=== PATIENT | male | born 1940 | race Caucasian/White ===

== ENCOUNTER 2021-04-05 16:44 | Inpatient (IN) | payer MEDICARE ==
[2021-04-05] MEDS ORDERED: NITROGLYCERIN OINT 1 INCH/GM PACKET TOPICAL STA (16:47)
[2021-04-05 17:09] LABS: Basophils % (A) 0 %; Eosinophils # (A) 0.1 k/uL (0-0.7); Eosinophils % (A) 2 %; Lymphocytes # (A) 0.9 k/uL (1.0-4.8); Lymphocytes % (A) 15 %; MCH 32.1 pg (25.0-35.0); MCHC 34.1 g/dL (31.0-37.0); Mean Platelet Volume 7.2; Monocytes # (A) 0.4 k/uL (0-1.0); Monocytes % (A) 7 %; Neutrophils # (A) 4.5 k/uL (1.3-7.7); Neutrophils % (A) 74 %; Platelet Count 133 k/uL (150-450); Poikilocytosis Slight; RBC 4.99 m/uL (4.30-5.90); RDW 14.5 % (11.5-15.5)
[2021-04-05 17:17] LABS: INR 1.1 (<1.2); Partial Thromboplastin Time 27.2 sec (22.0-30.0); Prothrombin Time 11.7 sec (9.0-12.0)
[2021-04-05 17:25] LABS: Albumin 3.5 g/dL (3.5-5.0); Calcium 9.5 mg/dL (8.4-10.2); Magnesium 2.2 mg/dL (1.6-2.3); Potassium 4.4 mmol/L (3.5-5.1); Total Bilirubin 1.3 mg/dL (0.2-1.3); Total Protein 6.5 g/dL (6.3-8.2)
--- NOTE | 2021-04-05 17:43 | XR ---
EXAMINATION TYPE: XR chest 2V DATE OF EXAM: 04/05/2021 COMPARISON: 03/11/2012 HISTORY: Bradycardia. Chest pain TECHNIQUE: FINDINGS: There is no heart failure nor confluent pneumonic infiltrate. There is left axillary pacema ker. Costophrenic angles are clear. Thoracic aorta is atheromatous. There are chest leads. There is o steopenia and some anterior wedging of several thoracic vertebra. IMPRESSION: No active cardiopulmonary disease. Inspiration is improved compared to old exam.
--- NOTE | 2021-04-05 18:01 | ED ---
General Adult HPI - General Chief complaint: Chest Pain Stated complaint: chest pain Time Seen by Provider: 04/05/21 16:45 Source: patient, EMS, RN notes reviewed, old records reviewed Mode of arrival: EMS Limitations: no limitations - History of Present Illness Initial comments: This is a 80-year-old male who presents emergency Department with a 20 minute episode of chest pain. Patient does not recall that episode however the nurse spoke with EMS that it lasted about 20 minutes he was gripping his chest at that time. According to EMS when they arrived the pain had already resolved and the patient denies ever having pain. Patient doesn't remember why he was coming to the emergency department so he is a poor historian at this time. EMS that he has been completely asymptomatic in route and no other indication of anything else is been going on recently. There is no family or friends with them so we do not have any of his past medical history at this time. - Related Data Allergies Allergy/AdvReac Type Severity Reaction Status Date / Time No Known Allergies Allergy Verified 04/05/21 16:48 Review of Systems ROS Statement: Those systems with pertinent positive or pertinent negative responses have been documented in the HPI. ROS Other: All systems not noted in ROS Statement are negative. Past Medical History Past Medical History: Atrial Fibrillation History of Any Multi-Drug Resistant Organisms: None Reported Past Surgical History: Unable to Obtain Past Psychological History: No Psychological Hx Reported Smoking Status: Never smoker Past Alcohol Use History: None Reported Past Drug Use History: None Reported General Exam - General Exam Comments Initial Comments: GENERAL: Patient is well-developed and well-nourished. Patient is nontoxic and well-hydrated and is in no acute distress. ENT: Neck is soft and supple. No significant lymphadenopathy is noted. Oropharynx is clear. Moist mucous membranes. Neck has full range of motion without eliciting any pain. EYES: The sclera were anicteric and conjunctiva were pink and moist. Extraocular movements were intact and pupils were equal round and reactive to light. Eyelids were unremarkable. PULMONARY: Unlabored respirations. Good breath sounds bilaterally. No audible rales rhonchi or wheezing was noted. CARDIOVASCULAR: There is a regular rate and rhythm without any murmurs gallops or rubs. ABDOMEN: Soft and nontender with normal bowel sounds. No palpable organomegaly was noted. There is no palpable pulsatile mass. SKIN: Skin is clear with no lesions or rashes and otherwise unremarkable. NEUROLOGIC: Patient is alert and oriented 2. Cranial nerves II through XII are grossly i ntact. Motor and sensory are also intact. Patient has slurred speech however according to EMS as is his baseline. Patient also takes time to respond and move slowly and EMS again states this is his baseline. Symmetrical smile.. MUSCULOSKELETAL: Normal extremities with adequate strength and full range of motion. No lower extremity swelling or edema. No calf tenderness. LYMPHATICS: No significant lymphadenopathy is noted PSYCHIATRIC: Unable to assess at this time secondary oriented 2 Limitations: no limitations Course Vital Signs 04/05/21 04/05/21 04/05/21 16:46 17:35 18:01 Temperature 97.9 F Pulse Rate 105 H 87 86 Respiratory 18 16 16 Rate Blood Pressure 141/112 108/78 94/59 O2 Sat by Pulse 98 98 98 Oximetry Medical Decision Making - Medical Decision Making EKG shows A. fib with occasional ventricular paced complex at 81 bpm QRS is 94 QT interval 380 QTC is 450. There are other pacer spikes that are not being captured. Chest x-ray shows no acute normalities. I spoke with Dr. Fermin Kennedy agreed to admit the patient admitted the patient wrote admitting orders. - Lab Data Result diagrams: 04/05/21 16:56 04/05/21 16:56 Lab Results 04/05/21 04/05/21 04/05/21 Range/Units 16:56 16:56 16:56 WBC 6.0 (3.8-10.6) k/uL RBC 4.99 (4.30-5.90) m/uL Hgb 16.0 (13.0-17.5) gm/dL Hct 47.0 (39.0-53.0) % MCV 94.0 (80.0-100.0) fL MCH 32.1 (25.0-35.0) pg MCHC 34.1 (31.0-37.0) g/dL RDW 14.5 (11.5-15.5) % Plt Count 133 L (150-450) k/uL MPV 7.2 Neutrophils % 74 % Lymphocytes % 15 % Monocytes % 7 % Eosinophils % 2 % Basophils % 0 % Neutrophils # 4.5 (1.3-7.7) k/uL Lymphocytes # 0.9 L (1.0-4.8) k/uL Monocytes # 0.4 (0-1.0) k/uL Eosinophils # 0.1 (0-0.7) k/uL Basophils # 0.0 (0-0.2) k/uL Poikilocytosis Slight PT 11.7 (9.0-12.0) sec INR 1.1 (<1.2) APTT 27.2 (22.0-30.0) sec Sodium 138 (137-145) mmol/L Potassium 4.4 (3.5-5.1) mmol/L Chloride 104 (98-107) mmol/L Carbon Dioxide 26 (22-30) mmol/L Anion Gap 8 mmol/L BUN 24 H (9-20) mg/dL Creatinine 1.00 (0.66-1.25) mg/dL Est GFR (CKD-EPI)AfAm 81 (>60 ml/min/1.73 sqM) Est GFR (CKD-EPI)NonAf 70 (>60 ml/min/1.73 sqM) Glucose 105 H (74-99) mg/dL Calcium 9.5 (8.4-10.2) mg/dL Magnesium 2.2 (1.6-2.3) mg/dL Total Bilirubin 1.3 (0.2-1.3) mg/dL AST 21 (17-59) U/L ALT 9 (4-49) U/L Alkaline Phosphatase 91 (38-126) U/L Troponin I (0.000-0.034) ng/mL Total Protein 6.5 (6.3-8.2) g/dL Albumin 3.5 (3.5-5.0) g/dL 04/05/21 Range/Units 16:56 WBC (3.8-10.6) k/uL RBC (4.30-5.90) m/uL Hgb (13.0-17.5) gm/dL Hct (39.0-53.0) % MCV (80.0-100.0) fL MCH (25.0-35.0) pg MCHC (31.0-37.0) g/dL RDW (11.5-15.5) % Plt Count (150-450) k/uL MPV Neutrophils % % Lymphocytes % % Monocytes % % Eosinophils % % Basophils % % Neutrophils # (1.3-7.7) k/uL Lymphocytes # (1.0-4.8) k/uL Monocytes # (0-1.0) k/uL Eosinophils # (0-0.7) k/uL Basophils # (0-0.2) k/uL Poikilocytosis PT (9.0-12.0) sec INR (<1.2) APTT (22.0-30.0) sec Sodium (137-145) mmol/L Potassium (3.5-5.1) mmol/L Chloride (98-107) mmol/L Carbon Dioxide (22-30) mmol/L Anion Gap mmol/L BUN (9-20) mg/dL Creatinine (0.66-1.25) mg/dL Est GFR (CKD-EPI)AfAm (>60 ml/min/1.73 sqM) Est GFR (CKD-EPI)NonAf (>60 ml/min/1.73 sqM) Glucose (74-99) mg/dL Calcium (8.4-10.2) mg/dL Magnesium (1.6-2.3) mg/dL Total Bilirubin (0.2-1.3) mg/dL AST (17-59) U/L ALT (4-49) U/L Alkaline Phosphatase (38-126) U/L Troponin I <0.012 (0.000-0.034) ng/mL Total Protein (6.3-8.2) g/dL Albumin (3.5-5.0) g/dL Disposition Clinical Impression: Chest pain Disposition: ADMITTED IP TO THIS [facility] Time of Disposition: 18:01
[2021-04-05] MEDS ORDERED: NITROGLYCERIN SL TABS 0.4 MG TAB SUBLINGUAL PRN (18:02)
[2021-04-05] MEDS ORDERED: ACETAMINOPHEN TAB 500 MG TAB PO PRN (18:33)
[2021-04-05] MEDS: SODIUM CHLORIDE 0.9% 1,000 ML IV SCH (19:00)
--- NOTE | 2021-04-05 19:11 | CT ---
EXAMINATION TYPE: CT brain wo con DATE OF EXAM: 04/05/2021 COMPARISON: None HISTORY: ams CT DLP: 1159.4 mGycm Automated exposure control for dose reduction was used. There is cerebral cortical atrophy. There is no mass effect nor midline shift. There is no sign of in tracranial hemorrhage. The calvarium is intact. There is patchy hypodensity in the periventricular wh ite matter. IMPRESSION: Cerebral atrophy. No acute intracranial abnormality. Chronic small vessel ischemia.
--- NOTE | 2021-04-05 20:30 | HP ---
HISTORY AND PHYSICAL DATE OF SERVICE: 04/05/2021 CHIEF COMPLAINT: Chest pain. HISTORY OF PRESENT ILLNESS: This 80-year-old gentleman with a past medical history of multiple medical problems was admitted with chest pain. The patient was referred from [facility]. The pain was felt in the anterior part of the chest. The patient is rather confused, unable to give a coherent history. Most of the history is taken from my discussion with staff and review of the chart at this time. The patient has a past medical history of atrial fibrillation. There is no history of any fever, rigor or chills at this time. PAST MEDICAL HISTORY: Atrial fibrillation. Otherwise, unable to obtain currently. MEDICATIONS: List is not available. ALLERGIES: NONE. Family history, social history, review of systems could not be taken because of the patient's confusion. PHYSICAL EXAMINATION: Patient is conscious, confused. Pulse is 86, blood pressure 94/60, respirations 16, temperature 97.9, pulse ox 98% on room air. HEENT: Conjunctivae normal. NECK: No jugular venous distention. CARDIOVASCULAR: S1, S2 muffled. RESPIRATION: Breath sounds diminished at the bases. A few scattered rhonchi and crackles. ABDOMEN: Soft, nontender. LEGS: No edema. No swelling. NERVOUS SYSTEM: Higher functions as mentioned earlier. Moves all 4 limbs. No focal motor or sensory deficit. LYMPHATICS: No lymph node palpable in neck, axillae or groin. SKIN: No ulcer, rash, bleeding. JOINTS: No active deforming arthropathy. LABS: Platelets are 133. Otherwise, sodium , potassium 4.4. Glucose 105. ASSESSMENT: 1. Chest pain for evaluation; possible unstable angina. Rule out coronary artery disease. 2. Atrial fibrillation. 3. Thrombocytopenia. 4. Change in mental status, metabolic encephalopathy. 5. Possible dementia. 6. Elevated random glucose. RECOMMENDATIONS AND DISCUSSION: I recommend to continue current medications, continue with symptomatic treatment. Otherwise, a portable chest x-ray showed no acute problems at this time. Will consult Cardiology. Set of troponins. We will also resume the home medications once the list is available. Prognosis is guarded. Further recommendations to follow. MMODL / IJN: [id number] / MTDD
[2021-04-05] MEDS: HEPARIN SODIUM,PORCINE/PF 5,000 UNIT/0.5 ML SYRINGE SQ SCH (22:08)
[2021-04-05] MEDS: NITROGLYCERIN OINT 1 INCH/GM PACKET TOPICAL SCH (23:11)
[2021-04-06] MEDS: NITROGLYCERIN OINT 1 INCH/GM PACKET TOPICAL SCH ×3 (06:06→17:20)
[2021-04-06] MEDS: PANTOPRAZOLE 40 MG TABLET PO SCH (08:20)
[2021-04-06] MEDS: HEPARIN SODIUM,PORCINE/PF 5,000 UNIT/0.5 ML SYRINGE SQ SCH ×2 (08:21→22:20)
[2021-04-06] MEDS: ASPIRIN 81 MG PO SCH (08:21)
[2021-04-06 08:59] LABS: Basophils # (A) 0.04 X 10*3/uL (0.00-0.10); Basophils % (A) 0.8 %; Eosinophils # (A) 0.14 X 10*3/uL (0.04-0.35); Eosinophils % (A) 2.7 %; HCT 42.9 % (39.6-50.0); HGB 14.5 g/dL (13.0-17.0); Lymphocytes # (A) 1.34 X 10*3/uL (0.90-5.00); Lymphocytes % (A) 25.5 %; MCH 31.6 pg (27.0-32.0); MCHC 33.8 g/dL (32.0-37.0); MCV 93.5 fL (80.0-97.0); Mean Platelet Volume 9.8 fL (9.5-12.2); Monocytes # (A) 0.42 X 10*3/uL (0.20-1.00); Neutrophils # (A) 3.29 X 10*3/uL (1.80-7.70); Neutrophils % (A) 62.4 %; Platelet Count 119 X 10*3/uL (140-440); RBC 4.59 X 10*6/uL (4.40-5.60); RDW 13.1 % (11.5-14.5); WBC 5.26 X 10*3/uL (4.50-10.00)
[2021-04-06] MEDS ORDERED: ASPIRIN 325 MG TAB PO SCH (09:00)
[2021-04-06 09:01] LABS: African American GFR (CKD) 92.5 (60.0-200.0); BUN/Creat Ratio 26.67 Ratio (12.00-20.00); Calcium 9.3 mg/dL (8.7-10.3); Chol/HDL Ratio 3.2; LDL Cholesterol,Calculated 51.2 mg/dL (0.0-131.0); Non-African American GFR(CKD) 79.8 (60.0-200.0); Potassium 3.9 mmol/L (3.5-5.5); VLDL Calculation 14.8 mg/dL (5.00-40.00)
--- NOTE | 2021-04-06 10:05 | P.CRDCN ---
History of Present Illness History of present illness: HISTORY OF PRESENTING ILLNESS This is a pleasant 80-year-old male past medical history significant for CVA, dementia, and pacemaker insertion (about 10 years ago per son). Per Son, the patient does not follow with a manager plan. We have been asked to see in consultation for chest pain. Patient is seen and examined at bedside. He is alert with verbal stimuli at time of exam. He is not oriented to person, place or time. He is confused. Unable to give a history or review of systems. History obtained from chart review and nursing. Spoke to patient's son who is the patient's POA. Patient currently lives with his son and has a home healthcare nurse. Home health care nurse evaluated the patient yesterday at home. She told the son that patient did have an irregular heart rhythm, his blood pressure was apparently low. He also complained of some chest pain. The home health care nurse recommended patient be taken to the emergency department. Patient son states that he also has been complaining of a cough and feeling congested. He usually has to have thick nurse in any liquids that he drinks, and they did recently run out of thickeners. Patient's son states his father did have a stroke years ago. He denies any known history of coronary artery disease, [place], diabetes, hypertension. Son states that his mental status usually comes and goes. He is normally able to walk to with a walker at home. He is forgetful, wakes up in the middle of night and will walk by himself. He has been complaining of not being able to see, son states the patient did get new glasses recently, but the patient continues to complain of decreased vision. Son also states patient has not had a bowel movement in about 1 week. His son is also looking into placement for his father. Current home medications include aspirin 81 mg daily, Sinemet, Lasix 20 mg daily, magnesium oxide 400 mg daily, potassium chloride 20meq daily, simvastatin. EKG reveals atrial fibrillation underlying HR 81 with A-V paced spikes, PVC present. CT brain- No acute intracranial abnormality. Cerebral atrophy. chronic small vessel ischemia Telemetry tracings indicate atrial fibrillation with controlled ventricular rates, paced spikes present, occasional PVCs. Chest xray- pacemaker present, thoracic aorta is atheromatous. No acute cardiopulmonary process. Laboratory reviewed, WBC 6, hemoglobin 16, platelets 133, sodium 138, potassium 4.4, BUN 24, serum creatinine 1, troponin negative 3, magnesium 2.2. REVIEW OF SYSTEMS At the time of my exam: Unable to give accurate review of systems at this time due to mental status PHYSICAL EXAMINATION Blood pressure 108/70 heart rate 75 afebrile and maintaining oxygen saturation on room air CONSTITUTIONAL: No apparent distress. HEENT: Head is normocephalic. Pupils are round, equal, sluggish. Sclerae anicteric. Mucous membranes of the mouth are dry. No JVD. CHEST EXAMINATION: Lungs are clear to auscultation. No chest wall tenderness is noted on palpation HEART EXAMINATION: Irregular rate and rhythm. S1, S2 heard. Systolic mumur noted ABDOMEN: Soft, nontender. Positive bowel sounds. :[place] with cloudy, yellow urine. EXTREMITIES: 2+ peripheral pulses, no lower extremity edema and no calf tenderness. SKIN: generalized ecchymosis NEUROLOGIC EXAMINATION: Patient is awake, alert and oriented x3. ASSESSMENT Chest pain, acute coronary syndrome has been ruled out Pacemaker insertion, unknown details, placed about 10 years ago per son Paroxysmal atrial fibrillation CHADS2-VASC score 4. History of CVA PLAN An acute coronary event has been ruled out with no EKG evidence of ischemia and negative cardiac enzymes. Interrogate patient's pacemaker Obtain 2D echocardiogram and doppler study to assess cardiac structure and function. Continue aspirin and statin Patient is currently rate controlled Anticoagulation- we will not start anticoagulation at this time due to frequent falls at home Nurse Practitioner note has been reviewed, I agree with a documented findings and plan of care. Patient was seen and examined. Past Medical History Past Medical History: Atrial Fibrillation History of Any Multi-Drug Resistant Organisms: None Reported Past Surgical History: Unable to Obtain Past Anesthesia/Blood Transfusion Reactions: No Reported Reaction Past Psychological History: No Psychological Hx Reported Smoking Status: Never smoker Past Alcohol Use History: None Reported Past Drug Use History: None Reported Medications and Allergies Home Medications Medication Instructions Recorded Confirmed Type Aspirin 81 mg PO DAILY 04/05/21 04/05/21 History Bethanechol Chloride 25 mg PO BID 04/05/21 04/05/21 History Carbidopa-Levodopa 25-100 mg 1 tab PO TID 04/05/21 04/05/21 History [Sinemet 25-100] Cholecalciferol [Vitamin D3 (25 50 mcg PO DAILY 04/05/21 04/05/21 History Mcg = 1000 Iu)] Furosemide [Lasix] 20 mg PO DAILY 04/05/21 04/05/21 History Magnesium Oxide [Magox 400] 400 mg PO DAILY 04/05/21 04/05/21 History Nystatin 100,000 Unit/gm Powd 1 applic TOPICAL BID 04/05/21 04/05/21 History [Mycostatin Powder] Potassium Chloride ER [K-Dur 10] 20 meq PO DAILY 04/05/21 04/05/21 History Sennosides [Senna] 8.6 mg PO DAILY 04/05/21 04/05/21 History Simvastatin [Zocor] 20 mg PO HS 04/05/21 04/05/21 History Tamsulosin HCl [Flomax] 0.4 mg PO DAILY 04/05/21 04/05/21 History Allergies Allergy/AdvReac Type Severity Reaction Status Date / Time No Known Allergies Allergy Verified 04/05/21 21:41 Physical Exam Vitals: Vital Signs Temp Pulse Pulse Resp BP BP Pulse Ox 04/06/21 02:00 97.2 F L 75 16 108/70 95 04/05/21 21:00 66 04/05/21 20:00 98.4 F 66 17 106/68 95 04/05/21 18:01 86 16 94/59 98 04/05/21 17:35 87 16 108/78 98 04/05/21 16:46 97.9 F 105 H 18 141/112 98 Intake and Output 04/05/21 04/06/21 04/06/21 22:59 06:59 14:59 Intake Total 0 Output Total 250 Balance -250 0 Intake: Oral 0 Output: Urine 250 Other: Voiding Method Indwelling Catheter Indwelling Catheter Weight 90.718 kg Results 04/06/21 05:12 04/06/21 05:12 Cardiac Enzymes 04/05/21 04/05/21 04/05/21 Range/Units 11:43 16:56 16:56 AST 21 (17-59) U/L Troponin I <0.012 <0.012 (0.000-0.034) ng/mL 04/05/21 Range/Units 23:14 AST (17-59) U/L Troponin I <0.012 (0.000-0.034) ng/mL Coagulation 04/05/21 Range/Units 16:56 PT 11.7 (9.0-12.0) sec APTT 27.2 (22.0-30.0) sec CBC 04/05/21 Range/Units 16:56 WBC 6.0 (3.8-10.6) k/uL RBC 4.99 (4.30-5.90) m/uL Hgb 16.0 (13.0-17.5) gm/dL Hct 47.0 (39.0-53.0) % Plt Count 133 L (150-450) k/uL Comprehensive Metabolic Panel 04/05/21 Range/Units 16:56 Sodium 138 (137-145) mmol/L Potassium 4.4 (3.5-5.1) mmol/L Chloride 104 (98-107) mmol/L Carbon Dioxide 26 (22-30) mmol/L BUN 24 H (9-20) mg/dL Creatinine 1.00 (0.66-1.25) mg/dL Glucose 105 H (74-99) mg/dL Calcium 9.5 (8.4-10.2) mg/dL AST 21 (17-59) U/L ALT 9 (4-49) U/L Alkaline Phosphatase 91 (38-126) U/L Total Protein 6.5 (6.3-8.2) g/dL Albumin 3.5 (3.5-5.0) g/dL Current Medications Generic Name Dose Route Start Last Admin Trade Name Freq PRN Reason Stop Dose Admin Acetaminophen 500 mg 04/05/21 18:33 Acetaminophen Tab 500 Mg Tab PO Q6HR PRN Fever and/ or Pain Aspirin 325 mg 04/06/21 09:00 Aspirin 325 Mg Tab PO DAILY TOVA Heparin Sodium (Porcine) 5,000 unit 04/05/21 21:00 04/05/21 22:08 Heparin Sodium,Porcine/Pf 5,000 Unit/0.5 Ml Syringe SQ 5,000 unit Q12HR TOVA Administration Sodium Chloride 1,000 mls @ 50 mls/hr 04/05/21 18:45 04/05/21 19:00 Saline 0.9% IV 50 mls/hr .Q20H TOVA Administration Nitroglycerin 0.4 mg 04/05/21 18:02 Nitroglycerin Sl Tabs 0.4 Mg Tab SUBLINGUAL Q5M PRN Chest Pain Nitroglycerin 1 inch 04/06/21 00:00 04/06/21 06:06 Nitroglycerin Oint 1 Inch/Gm Packet TOPICAL 1 inch Q6HR TOVA Administration Pantoprazole Sodium 40 mg 04/06/21 07:30 Pantoprazole 40 Mg Tablet PO AC-BRKFST [facility] Intake and Output 04/05/21 04/06/21 04/06/21 22:59 06:59 14:59 Intake Total 0 Output Total 250 Balance -250 0 Intake: Oral 0 Output: Urine 250 Other: Voiding Method Indwelling Catheter Indwelling Catheter Weight 90.718 kg 04/05/21 16:56 04/05/21 16:56
--- NOTE | 2021-04-06 12:33 | ECHOF ---
Referral Reason:LV function MEASUREMENTS -------- HEIGHT: 182.9 cm WEIGHT: 90.7 kg BP: 108/70 RVIDd: 3.1 cm (< 3.3) IVSd: 1.3 cm (0.6 - 1.1) LVIDd: 3.7 cm (3.9 - 5.3) LVPWd: 1.6 cm (0.6 - 1.1) IVSs: 1.7 cm LVIDs: 2.5 cm LVPWs: 1.6 cm LAESV Index (A-L): 30.73 ml/m Ao Diam: 3.5 cm (2.0 - 3.7) AV Cusp: 1.1 cm (1.5 - 2.6) LA Diam: 3.7 cm (2.7 - 3.8) AR PHT: 583 ms RAP: 5.00 mmHg RVSP: 12.72 mmHg FINDINGS -------- This was a technically adequate study. The left ventricular size is normal. There is mild concentric left ventricular hypertrophy. Overa ll left ventricular systolic function is mildly impaired with, an EF between 45 - 50 %. The right ventricle is normal in size. LA is midly dilated 29-33ml/m2. The right atrial size is normal. Interatrial and interventricular septum intact. There is moderate aortic valve sclerosis. There is mild aortic regurgitation. There is no evidenc e of aortic stenosis. Mild mitral regurgitation is present. Mild tricuspid regurgitation present. There is no evidence of pulmonary hypertension. The right v entricular systolic pressure, as measured by Doppler, is 12.72mmHg. The pulmonic valve was not well visualized. The aortic root size is normal. Normal inferior vena cava with normal inspiratory collapse consistent with estimated right atrial pre ssure of 5 mmHg. There is no pericardial effusion. CONCLUSIONS -------- 1. The left ventricular size is normal. 2. There is mild concentric left ventricular hypertrophy. 3. Overall left ventricular systolic function is mildly impaired with, an EF between 45 - 50 %. 4. LA is midly dilated 29-33ml/m2. 5. There is moderate aortic valve sclerosis. 6. There is mild aortic regurgitation. 7. Mild mitral regurgitation is present. 8. Mild tricuspid regurgitation present. CARDBOARD INSERTER: Mitzi Cam, [facility]
[2021-04-06] MEDS: SODIUM CHLORIDE 0.9% 1,000 ML IV SCH (14:22)
--- NOTE | 2021-04-06 19:35 | PN ---
PROGRESS NOTE DATE OF SERVICE: 04/06/2021 This 80-year-old gentleman who was admitted with chest pain is also mildly confused. Patient closely monitored at this time. Cardiology has seen the patient and recommended a 2D echo with Doppler and anticoagulation. No chest pain. No palpitations. No fever. PHYSICAL EXAMINATION: Alert and oriented x2. Pulse 60. Blood pressure 105/74, respiration 18, temperature 97.8, pulse ox 98 percent on room air. HEENT: Conjunctivae normal. Neck: No JVD. Cardiovascular: S1, S2 muffled. Respiratory: Breath sounds diminished in the bases. Scattered rhonchi and crackles. Abdomen: Soft. Nontender. Legs no edema. No swelling. Nervous system: No focal deficits. LABS: Platelets are 119. ASSESSMENT: 1. Chest pain possible unstable angina. Myocardial infarction ruled out. 2. Atrial fibrillation. 3. On anticoagulation. 4. Thrombocytopenia. 5. Change in mental status, acute metabolic encephalopathy multifactorial. 6. Possible dehydration, possible dementia. 7. Elevated random glucose. RECOMMENDATIONS AND DISCUSSION: Recommend to continue current medications, symptomatic treatment. Otherwise closely with Cardiology. CT scan of the brain was reviewed. Shows significant dementia. Guarded prognosis. Repeat labs. Guarded prognosis. Further recommendations to follow. MMODL / IJN: [id number] /
[2021-04-06] MEDS: ATORVASTATIN 10 MG TAB PO SCH (21:14)
[2021-04-07] MEDS: NITROGLYCERIN OINT 1 INCH/GM PACKET TOPICAL SCH ×4 (00:20→17:47)
[2021-04-07] MEDS: HEPARIN SODIUM,PORCINE/PF 5,000 UNIT/0.5 ML SYRINGE SQ SCH ×2 (08:55→20:12)
[2021-04-07] MEDS: ASPIRIN 81 MG PO SCH (08:56)
[2021-04-07] MEDS: PANTOPRAZOLE 40 MG TABLET PO SCH (08:56)
[2021-04-07] MEDS: SODIUM CHLORIDE 0.9% 1,000 ML IV SCH (12:15)
--- NOTE | 2021-04-07 13:45 | P.PN ---
Subjective This is a pleasant 80-year-old male past medical history significant for CVA, dementia, and pacemaker insertion (about 10 years ago per son). 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 We have been asked to see in consultation for chest pain. Patient is seen and examined at bedside. He is alert with verbal stimuli at time of exam. He is not oriented to person, place or time. He is confused. Unable to give a history or review of systems. History obtained from chart review and nursing. Spoke to patient's son who is the patient's POA. Patient currently lives with his son and has a home healthcare nurse. Home health care nurse evaluated the patient yesterday at home. She told the son that patient did have an irregular heart rhythm, his blood pressure was apparently low. He also complained of some chest pain. The home health care nurse recommended patient be taken to the emergency department. Patient son states that he also has been complaining of a cough and feeling congested. He usually has to have thick nurse in any liquids that he drinks, and they did recently run out of thickeners. Patient's son states his father did have a stroke years ago. He denies any known history of coronary artery disease, AL, diabetes, hypertension. Son states that his mental status usually comes and goes. He is normally able to walk to with a walker at home. He is forgetful, wakes up in the middle of night and will walk by himself. He has been complaining of not being able to see, son states the patient did get new glasses recently, but the patient continues to complain of decreased vision. Son also states patient has not had a bowel movement in about 1 week. His son is also looking into placement for his father. Current home medications include aspirin 81 mg daily, Sinemet, Lasix 20 mg daily, magnesium oxide 400 mg daily, potassium chloride 20meq daily, simvastatin. EKG reveals atrial fibrillation underlying HR 81 with A-V paced spikes, PVC present. CT brain- No acute intracranial abnormality. Cerebral atrophy. chronic small vessel ischemia Telemetry tracings indicate atrial fibrillation with controlled ventricular rates, paced spikes present, occasional PVCs. Chest xray- pacemaker present, thoracic aorta is atheromatous. No acute cardiopulmonary process. 04/07/21: Patient seen and examined at bedside, appears more alert. Continues to be confused. Echocardiogram revealed left ventricular systolic function is mildly impaired with an EF between 45-50%, LA is mildly dilated, moderate aortic valve sclerosis, mild aortic regurgitation, mild mitral regurgitation, mild tricuspid regurgitation. Interrogation of patient's pacemaker performed which reveals he has an A fib burden of 44%, no acute findings on interrogation. Telemetry reviewed, patient continues to be in atrial fibrillation. He's currently m aintained on aspirin 81 mg daily, atorvastatin 10 mg nightly, subcu heparin, Protonix 40 mg daily. PHYSICAL EXAMINATION Blood pressure 108/70 heart rate 75 afebrile and maintaining oxygen saturation on room air CONSTITUTIONAL: No apparent distress. HEENT: Head is normocephalic. Pupils are round, equal, sluggish. Sclerae anicteric. Mucous membranes of the mouth are dry. No JVD. CHEST EXAMINATION: Lungs are clear to auscultation. No chest wall tenderness is noted on palpation HEART EXAMINATION: Irregular rate and rhythm. S1, S2 heard. Systolic mumur noted ABDOMEN: Soft, nontender. Positive bowel sounds. :[place] with cloudy, yellow urine. EXTREMITIES: 2+ peripheral pulses, no lower extremity edema and no calf tenderness. SKIN: generalized ecchymosis NEUROLOGIC EXAMINATION: Patient is awake, alert and oriented x3. ASSESSMENT Chest pain, acute coronary syndrome has been ruled out Pacemaker insertion, unknown details, placed about 10 years ago per son Paroxysmal atrial fibrillation CHADS2-VASC score 4. Cardiomyopathy, LV systolic function mildly impaired, EF 45-50%, most likely non-ischemic History of CVA PLAN An acute coronary event has been ruled out with no EKG evidence of ischemia and negative cardiac enzymes. Echocardiogram obtained and reviewed We will start carvedilol 3.125mg BID Continue aspirin and statin Patient is currently rate controlled Anticoagulation- we will not start anticoagulation at this time due to frequent falls at home and risk of bleeding. Patient can follow up outpatient with Dr. Mitchell From a cardiology perspective, no further testing at this time. We will follow the patient as needed. Please reconsult if questions or concerns. Nurse Practitioner note has been reviewed, I agree with a documented findings and plan of care. Patient was seen and examined. Objective - Vital Signs Vital signs: Vital Signs Temp 97.8 F 04/07/21 07:00 Pulse 74 04/07/21 07:00 Resp 18 04/07/21 07:00 BP 113/77 04/07/21 07:00 Pulse Ox 95 04/07/21 07:00 Intake & Output 04/06/21 04/07/21 04/07/21 18:59 06:59 18:59 Output Total 850 350 200 Balance -850 -350 -200 Output: Urine 850 350 200 Other: Voiding Method Indwelling Catheter Indwelling Catheter Indwelling Catheter - Labs CBC & Chem 7: 04/06/21 05:12 04/06/21 05:12
[2021-04-07] MEDS: carvediloL 3.125 MG TAB PO SCH (17:47)
--- NOTE | 2021-04-07 18:30 | PN ---
PROGRESS NOTE DATE OF SERVICE: 04/07/2021 This 80-year-old gentleman admitted with chest pain also was continued on some change in mental status also. A 2D echo with Doppler was done, showed ejection fraction about 45-50 percent and some multiple minimal valve abnormalities also. The patient also had a CT of the brain which showed cerebral atrophy and no acute abnormalities noted. Chronic small-vessel ischemia is noted. PAST MEDICAL HISTORY: Reviewed. REVIEW OF SYMPTOMS: Could not be obtained. CURRENT MEDICATIONS: Reviewed and include: Tylenol, aspirin, Lipitor, Coreg, heparin, Nitrostat, Nitro-Bid, Protonix. PHYSICAL EXAMINATION: Patient is alert and oriented. The patient is conscious, confused. Pulse 77, blood pressure 100/60, respiration 14, temperature 97.8, pulse ox 98 percent on room air. HEENT: Conjunctivae normal. NECK: No JVD. CARDIOVASCULAR: S1, S2 muffled. RESPIRATORY: Breath sounds diminished in the bases. A few scattered rhonchi and crackles. ABDOMEN: Soft, nontender. NERVOUS SYSTEM: Diffusely weak. LABS: CBC, platelets are 119. UA not available. ASSESSMENT: 1. Chest pain, possible unstable angina. Myocardial infarction ruled out. 2. Change in mental status, acute on chronic metabolic encephalopathy. 3. Rule out urinary tract infection. 4. Atrial fibrillation. 5. Possible underlying dementia. 6. On anticoagulation. 7. Thrombocytopenia. 8. Possible dehydration, present on admission. 9. Elevated random glucose. RECOMMENDATIONS AND DISCUSSION: This 80-year-old gentleman who presented with multiple complex medical issues, we will monitor the patient closely, continue the current medications, management and symptomatic treatment. Repeat labs. I would recommend UA with micro. Closely monitor. CT scan of the brain was noted. Follow up with Cardiology. Prognosis guarded. PT/OT evaluation. Consider possible rehab. Guarded prognosis. Further recommendations to follow. MMODL / IJN: [id number] /
[2021-04-07 18:45] LABS: Appearance,Urine Turbid (Clear); Bacteria,Urine Many /hpf; Bilirubin,Urine Negative (Negative); Blood,Urine Small (Negative); Budding Yeast,Urine Moderate /hpf; Color,Urine Dark Yellow; Glucose,Urine (UA) Negative (Negative); Hyaline Casts,Urine 20 /lpf (0-2); Ketones,Urine 1+ (Negative); Leukocyte Esterase,Urine Large (Negative); Mucus,Urine Many /hpf; Nitrite,Urine Positive (Negative); Protein,Urine 1+ (Negative); RBC,Urine 23 /hpf (0-5); Specific Gravity,Urine 1.021 (1.001-1.035); WBC,Urine >182 /hpf (0-5)
[2021-04-07] MEDS: ATORVASTATIN 10 MG TAB PO SCH (20:12)
[2021-04-08] MEDS: NITROGLYCERIN OINT 1 INCH/GM PACKET TOPICAL SCH ×5 (01:16→23:45)
[2021-04-08] MEDS: SODIUM CHLORIDE 0.9% 1,000 ML IV SCH (07:46)
[2021-04-08] MEDS: ASPIRIN 81 MG PO SCH (07:47)
[2021-04-08] MEDS: PANTOPRAZOLE 40 MG TABLET PO SCH (07:47)
[2021-04-08] MEDS: HEPARIN SODIUM,PORCINE/PF 5,000 UNIT/0.5 ML SYRINGE SQ SCH ×2 (07:47→20:23)
[2021-04-08] MEDS: carvediloL 3.125 MG TAB PO SCH ×2 (07:47→17:23)
[2021-04-08 12:00] LABS: Basophils # (A) 0.03 X 10*3/uL (0.00-0.10); Basophils % (A) 0.6 %; Eosinophils # (A) 0.15 X 10*3/uL (0.04-0.35); Eosinophils % (A) 2.8 %; HCT 43.8 % (39.6-50.0); HGB 14.4 g/dL (13.0-17.0); Lymphocytes # (A) 1.12 X 10*3/uL (0.90-5.00); Lymphocytes % (A) 20.6 %; MCH 30.6 pg (27.0-32.0); MCHC 32.9 g/dL (32.0-37.0); Mean Platelet Volume 9.4 fL (9.5-12.2); Monocytes # (A) 0.42 X 10*3/uL (0.20-1.00); Monocytes % (A) 7.7 %; Neutrophils % (A) 67.9 %; Platelet Count 136 X 10*3/uL (140-440); RBC 4.71 X 10*6/uL (4.40-5.60); RDW 13.2 % (11.5-14.5); WBC 5.44 X 10*3/uL (4.50-10.00)
[2021-04-08] MEDS: MULTIVITAMINS, THERA 1 EACH TAB PO SCH (12:22)
[2021-04-08] MEDS: THIAMINE 100 MG TAB PO SCH (12:22)
[2021-04-08] MEDS: FOLIC ACID 1 MG TAB PO SCH (12:22)
--- NOTE | 2021-04-08 12:33 | XR ---
EXAMINATION TYPE: XR chest 1V portable DATE OF EXAM: 04/08/2021 COMPARISON: Radiograph chest 04/05/2021 HISTORY: Rule out pneumonia TECHNIQUE: Single frontal view of the chest is obtained. FINDINGS: Left chest wall cardiac device with the lead tips over the right atrium and right ventricl e. There is no focal air space opacity, pleural effusion, or pneumothorax seen. Strandy scarring/atelect asis over the left lateral lung. The cardiac silhouette size is within normal limits. The osseous s tructures are intact. Punctate radiodensities over the right upper quadrant. IMPRESSION: No acute process.
--- NOTE | 2021-04-08 12:46 | PN ---
PROGRESS NOTE DATE OF SERVICE: 04/08/2021 This 80-year-old gentleman admitted with chest pain also had change in mental status. The patient has possible acute UTI. The patient was started on broad-spectrum IV antibiotics. Patient continues to be minimally responsive at this time. The patient has significant dementia with significant atrophy which is observed on the CT scan. Past medical history reviewed. Review of systems could not be taken. CURRENT MEDICATIONS: Current medications are Tylenol, aspirin, Lipitor, Coreg, Rocephin, folic acid, multivitamins, nitro. Doses are reviewed. PHYSICAL EXAMINATION: Patient is stuporous. Pulse 64, blood pressure 126/86, respirations 16, temperature 97.3, pulse ox 94% on room air. HEENT: Conjunctivae normal. NECK: No jugular venous distention. CARDIOVASCULAR: S1, S2 muffled. RESPIRATION: Breath sounds diminished at the bases. A few scattered rhonchi. ABDOMEN: Soft. NERVOUS SYSTEM: No focal deficit. LABS: CBC noted. UA noted. ASSESSMENT: 1. Change in mental status, acute on chronic metabolic encephalopathy, with possible acute urinary tract infection with sepsis, present on admission. 2. Chest pain; possible unstable angina. Myocardial infarction ruled out. 3. Atrial fibrillation. 4. Underlying severe dementia. 5. On anticoagulation. 6. Thrombocytopenia. 7. Dehydration, present on admission. 8. Elevated random glucose. RECOMMENDATIONS AND DISCUSSION: I recommend to continue current medications, continue with symptomatic treatment. Otherwise at this time continue the antibiotics. Also recommend repeat blood cultures and a portable chest x-ray. Prognosis guarded. Further recommendations to follow. MMODL / IJN: [id number] /
[2021-04-08] MEDS: ATORVASTATIN 10 MG TAB PO SCH (20:23)
[2021-04-08 22:50] LABS: African American GFR (CKD) 102.6 (60.0-200.0); Anion Gap 9.1 mmol/L (4.00-12.00); BUN/Creat Ratio 28.57 Ratio (12.00-20.00); Carbon Dioxide 23.9 mmol/L (21.6-31.8); Non-African American GFR(CKD) 88.5 (60.0-200.0); Potassium 3.9 mmol/L (3.5-5.5)
[2021-04-09] MEDS: SODIUM CHLORIDE 0.9% 1,000 ML IV SCH ×2 (04:43→23:31)
[2021-04-09] MEDS: NITROGLYCERIN OINT 1 INCH/GM PACKET TOPICAL SCH ×3 (05:03→17:50)
[2021-04-09] MEDS: ASPIRIN 81 MG PO SCH (07:57)
[2021-04-09] MEDS: carvediloL 3.125 MG TAB PO SCH ×2 (07:57→16:30)
[2021-04-09] MEDS: PANTOPRAZOLE 40 MG TABLET PO SCH (07:57)
[2021-04-09] MEDS: HEPARIN SODIUM,PORCINE/PF 5,000 UNIT/0.5 ML SYRINGE SQ SCH ×2 (07:57→23:30)
[2021-04-09] MEDS: MULTIVITAMINS, THERA 1 EACH TAB PO SCH (12:17)
[2021-04-09] MEDS: FOLIC ACID 1 MG TAB PO SCH (12:17)
[2021-04-09] MEDS: THIAMINE 100 MG TAB PO SCH (12:18)
--- NOTE | 2021-04-09 13:24 | PN ---
PROGRESS NOTE DATE OF SERVICE: 04/09/2012 This 80-year-old gentleman who was admitted with chest pain also had change in mental status. Patient also has a history of Parkinson's. The patient also had acute UTI. Patient was started on broad-spectrum IV antibiotics. Speech pathology evaluation has been also sought. Patient continues to be barely responsive at this time. Chest x-ray which is done and reviewed personally by me showed no acute abnormality. Past medical history reviewed. Review of systems could not be taken. CURRENT MEDICATIONS: Current medications are reviewed and include Tylenol, aspirin, Lipitor, Sinemet, Coreg, Rocephin, folic acid, Lasix, heparin, magnesium oxide, multivitamins, Nitrostat. Doses are reviewed. PHYSICAL EXAMINATION: Patient . Pulse 71, blood pressure 114/76, respirations 16, temperature 97.8, pulse ox 94% on room air. HEENT: Conjunctivae normal. NECK: No jugular venous distention. CARDIOVASCULAR: S1, S2 muffled. RESPIRATION: Breath sounds diminished at the bases. A few scattered rhonchi. ABDOMEN: Soft. NERVOUS SYSTEM: No focal deficit. LABS: WBC .4, hemoglobin 15.4. UA noted. Urine culture is pending. ASSESSMENT: 1. Change in mental status, possibly acute on chronic metabolic encephalopathy with possible acute urinary tract infection with sepsis, present on admission. 2. Chest pain, possible unstable angina. Myocardial infarction ruled out. 3. Atrial fibrillation. 4. Parkinson's. 5. Gait dysfunction. 6. Underlying severe dementia. 7. On anticoagulation. 8. Thrombocytopenia. 9. Dehydration, present on admission. 10.Elevated random glucose. RECOMMENDATIONS AND DISCUSSION: I recommend to continue current medications, continue with symptomatic treatment. Otherwise, continue with the home medications. Home medications are reconciled. Continue with antibiotics. PT/OT evaluation. Further recommendations to follow. MMODL / IJN: [id number] /
[2021-04-09] MEDS: CARBIDOPA-LEVODOPA 25-100 MG 1 EACH TAB PO SCH ×2 (16:25→23:31)
[2021-04-09] MEDS: NYSTATIN 100,000 UNIT/GM POWD 15 GM TOPICAL SCH (23:30)
[2021-04-09] MEDS: ATORVASTATIN 10 MG TAB PO SCH (23:31)
[2021-04-09] MEDS: BETHANECHOL 25 MG TAB PO SCH (23:31)
[2021-04-10] MEDS: NITROGLYCERIN OINT 1 INCH/GM PACKET TOPICAL SCH ×3 (00:28→14:07)
[2021-04-10 08:26] VITALS: BP 109/71; PULSE 77; RESP 16; TEMP 97.4
[2021-04-10] MEDS ORDERED: MAGNESIUM OXIDE 400 MG TAB PO SCH (09:00)
[2021-04-10] MEDS ORDERED: TAMSULOSIN 0.4 MG CAP.ER.24H PO SCH (09:00)
[2021-04-10] MEDS ORDERED: SENNOSIDES 8.6 MG TAB PO SCH (09:00)
[2021-04-10] MEDS ORDERED: FUROSEMIDE 20 MG TAB PO SCH (09:00)
[2021-04-10] MEDS ORDERED: CHOLECALCIFEROL 25 MCG (1000 IU) TABLET PO SCH (09:00)
[2021-04-10] MEDS ORDERED: POTASSIUM CHLORIDE ER 20 MEQ TAB.ER PO SCH (09:00)
[2021-04-10] MEDS: HEPARIN SODIUM,PORCINE/PF 5,000 UNIT/0.5 ML SYRINGE SQ SCH (09:13)
[2021-04-10] MEDS: PANTOPRAZOLE 40 MG TABLET PO SCH (14:06)
[2021-04-10] MEDS: THIAMINE 100 MG TAB PO SCH (14:06)
[2021-04-10] MEDS: ASPIRIN 81 MG PO SCH (14:06)
[2021-04-10] MEDS: MULTIVITAMINS, THERA 1 EACH TAB PO SCH (14:07)
[2021-04-10] MEDS: FOLIC ACID 1 MG TAB PO SCH (14:07)
[2021-04-10] MEDS: carvediloL 3.125 MG TAB PO SCH (14:10)
[2021-04-10] MEDS: CARBIDOPA-LEVODOPA 25-100 MG 1 EACH TAB PO SCH (14:10)
[2021-04-10] MEDS: BETHANECHOL 25 MG TAB PO SCH (14:10)
[2021-04-10] MEDS: NYSTATIN 100,000 UNIT/GM POWD 15 GM TOPICAL SCH (14:21)
--- NOTE | 2021-04-10 15:00 | P.DS ---
Providers Date of admission: 04/10/21 11:00 Expected date of discharge: 04/10/21 Attending physician: Mary Vanessa Consults: 04/05/21 18:02 Consult Physician Urgent Consulting Provider: [facility] Consult Reason/Comments: Chest pain Do you want consulting provider notified?: Yes Primary care physician: Merrill Chavez Hospital Course: Final diagnosis Change in mental status, possibly acute on chronic metabolic encephalopathy with possible acute urinary tract infection with sepsis, present on admission Chest pain, possible unstable angina, myocardial infarction ruled out Atrial fibrillation Parkinson's Gait dysfunction Underlying severe dementia Thrombocytopenia Dehydration, present on admission Elevated random glucose Discharge disposition Patient is being discharged in a stable condition with guarded prognosis to [facility] for continued PT/OT therapy. Patient will follow-up with Dr. Chavez in the outpatient setting upon discharge. Patient is to also follow-up with Dr. Mitchell cardiology in 2 weeks. Total time taken is greater than 35 minutes. Hospital course This is an 80-year-old male who was recently admitted with chest pain and also c hanges in mental status and being closely monitored. Patient does have a history of Parkinson's and was also found to have an acute urinary tract infection. Patient was started on antibiotics and will continue on oral Ceftin 500 mg twice daily for the next 5 days and then may discontinue. Patient was seen and evaluated by cardiology recommending outpatient follow-up with Dr. Mitchell in 1-2 weeks. Patient was also seen and evaluated by speech as he was having continued confusion and difficulty in swallowing and patient will continue with dysphasia 2 ground diet with nectar thickened liquids and strict aspiration precautions of head of the bed elevated 30-45 at all time along with supervision with meals and patient is able to take medications whole in applesauce. Currently no reports of chest pain, shortness of breath, or palpitations. Patient is afebrile. No reports of nausea or vomiting and patient is tolerating diet. Patient will be going to [facility] today. On exam vital signs are stable. Temp is 97.4F, pulse is 77 respirations are 16, blood pressure is 109/71, oxygen saturation is 95% on room air. Cardio S1, S2 are muffled. Respiratory system shows diminished breath sounds at the bases with no wheezing or rhonchi noted. Abdomen is soft and obese, and nontender. Nervous system shows diffuse weakness. Please refer to medication reconciliation sheet for a list of medications. Patient Condition at Discharge: Fair Plan - Discharge Summary Discharge Rx Participant: No New Discharge Prescriptions: New carvediloL [Coreg] 3.125 mg PO BID-W/MEALS tab Pantoprazole [Protonix] 40 mg PO AC-BRKFST tablet. Cefuroxime Axetil [Ceftin] 500 mg PO BID 5 Days #10 tab Folic Acid 1 mg PO DAILY@1200 tab Multivitamins, Thera [Multivitamin (formulary)] 1 each PO DAILY@1200 tab Nitroglycerin Sl Tabs [Nitrostat] 0.4 mg SUBLINGUAL Q5M PRN tab PRN Reason: Chest Pain Acetaminophen Tab [Tylenol] 500 mg PO Q6HR PRN tab PRN Reason: Fever And/ Or Pain Thiamine [Vitamin B-1] 100 mg PO DAILY@1200 tab Continue Sennosides [Senna] 8.6 mg PO DAILY Cholecalciferol [Vitamin D3 (25 Mcg = 1000 Iu)] 50 mcg PO DAILY Furosemide [Lasix] 20 mg PO DAILY Carbidopa-Levodopa 25-100 mg [Sinemet 25-100 mg] 1 tab PO TID Bethanechol Chloride 25 mg PO BID Tamsulosin HCl [Flomax] 0.4 mg PO DAILY Simvastatin [Zocor] 20 mg PO HS Potassium Chloride ER [K-Dur 10] 20 meq PO DAILY Nystatin 100,000 Unit/gm Powd [Mycostatin Powder] 1 applic TOPICAL BID Magnesium Oxide [Magox 400] 400 mg PO DAILY Aspirin 81 mg PO DAILY Discharge Medication List Aspirin 81 mg PO DAILY 04/05/21 [History] Bethanechol Chloride 25 mg PO BID 04/05/21 [History] Carbidopa-Levodopa 25-100 mg [Sinemet 25-100 mg] 1 tab PO TID 04/05/21 [History] Cholecalciferol [Vitamin D3 (25 Mcg = 1000 Iu)] 50 mcg PO DAILY 04/05/21 [History] Furosemide [Lasix] 20 mg PO DAILY 04/05/21 [History] Magnesium Oxide [Magox 400] 400 mg PO DAILY 04/05/21 [History] Nystatin 100,000 Unit/gm Powd [Mycostatin Powder] 1 applic TOPICAL BID 04/05/21 [History] Potassium Chloride ER [K-Dur 10] 20 meq PO DAILY 04/05/21 [History] Sennosides [Senna] 8.6 mg PO DAILY 04/05/21 [History] Simvastatin [Zocor] 20 mg PO HS 04/05/21 [History] Tamsulosin HCl [Flomax] 0.4 mg PO DAILY 04/05/21 [History] Acetaminophen Tab [Tylenol] 500 mg PO Q6HR PRN tab 04/10/21 [Rx] Cefuroxime Axetil [Ceftin] 500 mg PO BID 5 Days #10 tab 04/10/21 [Rx] Folic Acid 1 mg PO DAILY@1200 tab 04/10/21 [Rx] Multivitamins, Thera [Multivitamin (formulary)] 1 each PO DAILY@1200 tab 04/10/21 [Rx] Nitroglycerin Sl Tabs [Nitrostat] 0.4 mg SUBLINGUAL Q5M PRN tab 04/10/21 [Rx] Pantoprazole [Protonix] 40 mg PO AC-BRKFST tablet. 04/10/21 [Rx] Thiamine [Vitamin B-1] 100 mg PO DAILY@1200 tab 04/10/21 [Rx] carvediloL [Coreg] 3.125 mg PO BID-W/MEALS tab 04/10/21 [Rx] Follow up Appointment(s)/Referral(s): Merrill Chavez MD [Primary Care Provider] - 1-2 days Misha Mitchell MD [STAFF PHYSICIAN] - 2 Weeks Patient Instructions/Handouts: A-fib (Atrial Fibrillation) (DC) Activity/Diet/Wound Care/Special Instructions: Patient is going to [facility] Activity as tolerated Continue with antibiotics for 5 days and then may discontinue Patient is to continue with dysphasia to ground diet with nectar thickened liquids and may take medications whole in applesauce Continue with strict aspiration precautions of head of the bed elevated 30-45 at all time and supervision with meals Follow-up with cardiology outpatient in 2 weeks Discharge Disposition: TRANSFER TO SNF/ECF
== END 2021-04-10 17:25 | DRG 871 ==
LOC: EC 16:44 → 6NMEDSUR 18:02 → OBSVTOIN 04-10 11:00
PROVIDERS: ADMIT Hospitalist; ATTEND Hospitalist
DX: A41.9 Sepsis, unspecified organism (principal); G93.41 Metabolic encephalopathy; N39.0 Urinary tract infection, site not specified; I42.8 Other cardiomyopathies; I20.0 Unstable angina; I48.91 Unspecified atrial fibrillation; D69.6 Thrombocytopenia, unspecified; F02.80 Dementia in other diseases classified elsewhere, unspecified severity, without behavioral disturbance, psychotic disturbance, mood disturbance, and anxiety; E86.0 Dehydration; Z86.73 Personal history of transient ischemic attack (TIA), and cerebral infarction without residual deficits; G20 Parkinson's disease; R26.9 Unspecified abnormalities of gait and mobility; I70.0 Atherosclerosis of aorta; H54.7 Unspecified visual loss; Z95.0 Presence of cardiac pacemaker; Z79.899 Other long term (current) drug therapy; Z79.82 Long term (current) use of aspirin; I49.3 Ventricular premature depolarization
CPT/HCPCS: 36415; 70450; 71045; 71046; 80048; 80053; 80061; 81001; 83735; 84484; 85025; 85610; 85730; 87040; 93005; 93306; 99285

== ENCOUNTER 2021-05-06 22:06 | Inpatient (IN) | payer MEDICARE ==
--- NOTE | 2021-05-06 22:56 | ED ---
Fall HPI - General Chief Complaint: Fall Stated Complaint: Fall Time Seen by Provider: 05/06/21 22:11 Source: EMS Mode of arrival: EMS Limitations: altered mental status - History of Present Illness Initial Comments: This patient is an 81-year-old man who was transferred here from [facility] where he had gone to be evaluated after a fall. When I interview the patient, he does appear to have probably some underlying dementia or there may be some additional delirium. The patient is not able to clearly describe the fall. He does acknowledge back pain. He denies other pain. He denies dyspnea. Per the EMS crew describing to the [place] personnel, the patient had fallen at home, between 5 and 6 PM. He was reportedly attempting to get out of bed fell backwards striking his head and lower back and breaking part of the head board of the bed. He complained of upper back pain at the time. On arrival at the other facility, the patient did not have other complaints than that. He had workup there which included labs, which for the most part were normal though there was leukocytosis at 11.1 thousand with 88% neutrophils. Urinalysis showed 50-100 red cells and white cells. The patient does have reportedly indwelling Linares catheter however. The patient had CT of the brain and C-spine which were read as negative for acute pathology. There was a computed tomography scan of the thoracic spine showing was reported as a severe acute compression fracture of the T5 vertebral body. There was also right 6 and seventh rib fracture noted. Computed tomography scan of the L-spine was negative. Computed tomography scan of the pelvis was read as negative. The patient was given 1 g of Rocephin for the Linares catheter which was also changed at the facility or to transfer here. Complaint: fall -: hour(s) Fall From: standing When Fall Occurred: just prior to arrival Fall Witnessed: yes, by family Place Fall Occurred: home Loss of Consciousness: none Prolonged Down Time?: no Symptoms Prior to Fall: none Location: back - Related Data Home Medications Medication Instructions Recorded Confirmed Bethanechol Chloride 25 mg PO BID 04/05/21 05/06/21 Carbidopa-Levodopa 25-100 mg 1 tab PO TID 04/05/21 05/06/21 [Sinemet 25-100 mg] Cholecalciferol [Vitamin D3 (25 50 mcg PO DAILY 04/05/21 05/06/21 Mcg = 1000 Iu)] Magnesium Oxide [Magox 400] 400 mg PO DAILY 04/05/21 05/06/21 Sennosides [Senna] 8.6 mg PO DAILY 04/05/21 05/06/21 Tamsulosin HCl [Flomax] 0.4 mg PO DAILY 04/05/21 05/06/21 Multivitamins, Thera [Multivitamin 1 tab PO DAILY@1200 05/06/21 05/06/21 (formulary)] Omeprazole 20 mg PO DAILY 05/06/21 05/06/21 Simvastatin [Zocor] 10 mg PO DAILY 05/06/21 05/06/21 Previous Rx's Medication Instructions Recorded Acetaminophen Tab [Tylenol] 500 mg PO Q6HR PRN tab 04/10/21 Folic Acid 1 mg PO DAILY@1200 tab 04/10/21 Thiamine [Vitamin B-1] 100 mg PO DAILY@1200 tab 04/10/21 Ertapenem [INVanz] 1 gm IVPB Q24H 10 Days #10 each 05/10/21 Ofloxacin 0.3% Ophth Soln [Ocuflox 5 drops RIGHT EAR BID 7 Days #7 ml 05/10/21 Ophth Soln] Oxymetazoline 0.05% Nasl Fabens 6 spray RIGHT EAR BID PRN ml 05/10/21 [Afrin 0.05% Nasal Fabens] Allergies Allergy/AdvReac Type Severity Reaction Status Date / Time No Known Allergies Allergy Verified 05/06/21 23:13 Review of Systems ROS Statement: Those systems with pertinent positive or pertinent negative responses have been documented in the HPI. ROS Other: All systems not noted in ROS Statement are negative. Limitations: ROS unobtainable due to patients medical condition Past Medical History Past Medical History: Atrial Fibrillation History of Any Multi-Drug Resistant Organisms: None Reported Past Surgical History: Unable to Obtain Past Anesthesia/Blood Transfusion Reactions: No Reported Reaction Past Psychological History: No Psychological Hx Reported Smoking Status: Never smoker Past Alcohol Use History: None Reported Past Drug Use History: None Reported General Exam Limitations: altered mental status General appearance: alert Head exam: Present: normocephalic Eye exam: Present: PERRL, EOMI. Absent: scleral icterus, conjunctival injection ENT exam: Present: mucous membranes dry Neck exam: Present: normal inspection, full ROM. Absent: tenderness Respiratory exam: Present: rales (Left base), chest wall tenderness (Right posterior ribs). Absent: respiratory distress, wheezes, rhonchi, stridor, accessory muscle use, decreased breath sounds, prolonged expiratory Cardiovascular Exam: Present: regular rate, normal rhythm, normal heart sounds. Absent: systolic murmur, diastolic murmur, rubs, gallop GI/Abdominal exam: Present: soft, other (Old surgical scar right abdomen). Absent: distended, tenderness, guarding, rebound, rigid, mass Extremities exam: Present: normal inspection, normal capillary refill. Absent: pedal edema, calf tenderness Back exam: Present: vertebral tenderness Neurological exam: Present: alert. Absent: oriented X3 (Patient is oriented to person only), motor sensory deficit Skin exam: Present: warm, dry, intact, normal color. Absent: rash Course Vital Signs 05/06/21 05/06/21 05/07/21 22:16 23:00 00:00 Temperature 98.1 F Pulse Rate 95 95 96 Respiratory 18 18 20 Rate Blood Pressure 104/72 95/68 120/88 O2 Sat by Pulse 95 95 95 Oximetry Medical Decision Making - Medical Decision Making This patient is an 81-year-old man transferred here after having a fall at home and sustaining what appears to be acute T5 compression fracture. Given the acute traumatic injury patient be admitted to the orthopedic service with medical consultation, case discussed with the admission service and orders are written. - Lab Data Result diagrams: 05/08/21 11:55 05/08/21 11:55 Lab Results 05/06/21 05/06/21 05/06/21 Range/Units 22:42 22:42 22:42 WBC 11.5 H (3.8-10.6) k/uL RBC 4.80 (4.30-5.90) m/uL Hgb 15.0 (13.0-17.5) gm/dL Hct 44.9 (39.0-53.0) % MCV 93.4 (80.0-100.0) fL MCH 31.2 (25.0-35.0) pg MCHC 33.4 (31.0-37.0) g/dL RDW 13.9 (11.5-15.5) % Plt Count 140 L (150-450) k/uL MPV 7.1 Neutrophils % 88 % Lymphocytes % 7 % Monocytes % 4 % Eosinophils % 0 % Basophils % 0 % Neutrophils # 10.1 H (1.3-7.7) k/uL Lymphocytes # 0.9 L (1.0-4.8) k/uL Monocytes # 0.4 (0-1.0) k/uL Eosinophils # 0.0 (0-0.7) k/uL Basophils # 0.0 (0-0.2) k/uL Sodium 141 (137-145) mmol/L Potassium 4.2 (3.5-5.1) mmol/L Chloride 105 (98-107) mmol/L Carbon Dioxide 25 (22-30) mmol/L Anion Gap 11 mmol/L BUN 22 H (9-20) mg/dL Creatinine 0.80 (0.66-1.25) mg/dL Est GFR (CKD-EPI)AfAm >90 (>60 ml/min/1.73 sqM) Est GFR (CKD-EPI)NonAf 84 (>60 ml/min/1.73 sqM) Glucose 91 (74-99) mg/dL Estimated Ave Glu mg/dL Hemoglobin A1c (4.0-6.0) % Plasma Lactic Acid Adria 1.7 (0.7-2.0) mmol/L Calcium 9.6 (8.4-10.2) mg/dL Total Bilirubin 1.5 H (0.2-1.3) mg/dL AST 17 (17-59) U/L ALT 6 (4-49) U/L Alkaline Phosphatase 83 (38-126) U/L Total Protein 6.9 (6.3-8.2) g/dL Albumin 3.6 (3.5-5.0) g/dL Vitamin B12 (200.0-944.0) pg/mL Folate ng/mL TSH (0.350-5.500) uIU/mL 05/06/21 05/06/21 Range/Units 22:42 22:42 WBC (3.8-10.6) k/uL RBC (4.30-5.90) m/uL Hgb (13.0-17.5) gm/dL Hct (39.0-53.0) % MCV (80.0-100.0) fL MCH (25.0-35.0) pg MCHC (31.0-37.0) g/dL RDW (11.5-15.5) % Plt Count (150-450) k/uL MPV Neutrophils % % Lymphocytes % % Monocytes % % Eosinophils % % Basophils % % Neutrophils # (1.3-7.7) k/uL Lymphocytes # (1.0-4.8) k/uL Monocytes # (0-1.0) k/uL Eosinophils # (0-0.7) k/uL Basophils # (0-0.2) k/uL Sodium (137-145) mmol/L Potassium (3.5-5.1) mmol/L Chloride (98-107) mmol/L Carbon Dioxide (22-30) mmol/L Anion Gap mmol/L BUN (9-20) mg/dL Creatinine (0.66-1.25) mg/dL Est GFR (CKD-EPI)AfAm (>60 ml/min/1.73 sqM) Est GFR (CKD-EPI)NonAf (>60 ml/min/1.73 sqM) Glucose (74-99) mg/dL Estimated Ave Glu mg/dL 88 Hemoglobin A1c 4.7 (4.0-6.0) % Plasma Lactic Acid Adria (0.7-2.0) mmol/L Calcium (8.4-10.2) mg/dL Total Bilirubin (0.2-1.3) mg/dL AST (17-59) U/L ALT (4-49) U/L Alkaline Phosphatase (38-126) U/L Total Protein (6.3-8.2) g/dL Albumin (3.5-5.0) g/dL Vitamin B12 505.0 (200.0-944.0) pg/mL Folate >24.0 ng/mL TSH 3.050 (0.350-5.500) uIU/mL Disposition Clinical Impression: Fall, Fracture, thoracic vertebra, compression Disposition: ADMITTED IP TO THIS HOSP Condition: Stable Is patient prescribed a controlled substance at d/c from ED?: No
[2021-05-06] MEDS ORDERED: NALOXONE 0.4 MG/ML 1 ML VIAL IV PRN (22:58)
[2021-05-06] MEDS ORDERED: MORPHINE SULFATE 4 MG/ML SYRINGE IV PRN (22:58)
[2021-05-06] MEDS ORDERED: ACETAMINOPHEN TAB 325 MG TAB PO PRN (22:58)
[2021-05-06] MEDS ORDERED: ONDANSETRON 4 MG/2 ML VIAL IVP PRN (22:58)
[2021-05-06 23:32] LABS: Basophils % (A) 0 %; Eosinophils % (A) 0 %; HCT 44.9 % (39.0-53.0); Lymphocytes # (A) 0.9 k/uL (1.0-4.8); Lymphocytes % (A) 7 %; MCH 31.2 pg (25.0-35.0); MCHC 33.4 g/dL (31.0-37.0); MCV 93.4 fL (80.0-100.0); Mean Platelet Volume 7.1; Monocytes # (A) 0.4 k/uL (0-1.0); Monocytes % (A) 4 %; Neutrophils # (A) 10.1 k/uL (1.3-7.7); Neutrophils % (A) 88 %; Platelet Count 140 k/uL (150-450); RDW 13.9 % (11.5-15.5); WBC 11.5 k/uL (3.8-10.6)
[2021-05-06 23:47] LABS: ALT 6 U/L (4-49); AST 17 U/L (17-59); African American GFR (CKD) >90 (>60 ml/min/1.73 sqM); Albumin 3.6 g/dL (3.5-5.0); Alkaline Phosphatase 83 U/L (38-126); Anion Gap 11 mmol/L; Blood Urea Nitrogen 22 mg/dL (9-20); Calcium 9.6 mg/dL (8.4-10.2); Carbon Dioxide 25 mmol/L (22-30); Chloride 105 mmol/L (98-107); Glucose 91 mg/dL (74-99); Non-African American GFR(CKD) 84 (>60 ml/min/1.73 sqM); Potassium 4.2 mmol/L (3.5-5.1); Sodium 141 mmol/L (137-145); Total Bilirubin 1.5 mg/dL (0.2-1.3); Total Protein 6.9 g/dL (6.3-8.2)
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
[2021-05-07] MEDS: SODIUM CHLORIDE 0.9% 1,000 ML IV SCH ×4 (00:21→20:08)
--- NOTE | 2021-05-07 10:26 | CT ---
EXAMINATION TYPE: CT brain wo con DATE OF EXAM: 05/07/2021 COMPARISON: 04/05/2021 HISTORY: 81-year-old male confusion, Altered mental status TECHNIQUE: Examination was done in axial plane without intravenous contrast. Coronal and sagittal r econstructions performed. CT DLP: 1247.4 mGycm Automated exposure control for dose reduction was used. FINDINGS: There is no evidence of acute intracranial hemorrhage, acute ischemic changes, mass effect, or extra -axial fluid collection. 7 mm partially calcified extra-axial lesion along the superior right frontal convexity is unchanged, likely small meningioma. Moderate generalized supratentorial volume loss including mild ventricular prominence likely due to c entral cerebral atrophy. Velasco ratio calculated at 0.30. Moderate patchy and confluent periventricula r and deep white matter hypodensities are unchanged. Atherosclerotic calcifications within the carotid siphons redemonstrated. There is no effacement of cerebral sulci or basal subarachnoid cisterns. There is no hydrocephalus. There is no midline shift. Paula-white matter distinction is preserved. Leftward nasal septal deviation. Mastoid air cells well pneumatized. Orbits and globes are intact. IMPRESSION: 1. Moderate generalized atrophy and patchy burden of chronic small vessel ischemic disease. 2. 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 3. No acute intracranial abnormality seen.
--- NOTE | 2021-05-07 11:25 | P.CNOR ---
History of Present Illness - [facility] Consult date: 05/07/21 Consult reason: fracture History of present illness: 81-year-old male presented from [facility] on transfer due to altered mental status after a fall from standing. Patient had been previously admitted to this hospital about a month ago for cardiology workup and chest pain. He was discharged and went to rehab facility from his rehab facility he had to go home as he had run a days at the rehab facility. While at home yesterday his family member that he lives with stated that they heard a thud and did not hear him call for help he was then found down an unknown amount of time later having fallen and likely hitting his head and back on his bed breaking the headboard of his bed. Patient was rushed to [facility] where he underwent CT scans of his head cervical spine thoracic lumbar spine CT PE as well as other test due to his somewhat obtunded state. Is difficult to get a history on his normal mental status as today he is following commands but fairly somnolent. He was found there on a CT scans to have compression fractures of T5 and T7 T5 likely being more acute and T7 being more chronic in nature. He does complain of some back pain at this time. He denies pain in any of his other extremities he denies head pain. Of note when he was on the floor at the hospital here he was noted by nursing to have some bleeding from his right ear and so he was immediately sent down for computed tomography scan of his head again has follow- up. The computed tomography scan was reviewed and showed no acute bleeds or changes. The patient is not very reliable for history however he is able to answer yes or no questions and simple questions at this time. He denies any other pain he denies any weakness. Denies chest pain shortness of breath at this time Review of Systems Difficult due to patient's current mental state however essentially negative Past Medical History Past Medical History: Atrial Fibrillation History of Any Multi-Drug Resistant Organisms: None Reported Past Surgical History: Unable to Obtain Past Anesthesia/Blood Transfusion Reactions: No Reported Reaction Past Psychological History: No Psychological Hx Reported Smoking Status: Never smoker Past Alcohol Use History: None Reported Past Drug Use History: None Reported Medications and Allergies Home Medications Medication Instructions Recorded Confirmed Type Aspirin 81 mg PO DAILY 04/05/21 05/06/21 History Bethanechol Chloride 25 mg PO BID 04/05/21 05/06/21 History Carbidopa-Levodopa 25-100 mg 1 tab PO TID 04/05/21 05/06/21 History [Sinemet 25-100 mg] Cholecalciferol [Vitamin D3 (25 50 mcg PO DAILY 04/05/21 05/06/21 History Mcg = 1000 Iu)] Furosemide [Lasix] 20 mg PO DAILY 04/05/21 05/06/21 History Magnesium Oxide [Magox 400] 400 mg PO DAILY 04/05/21 05/06/21 History Potassium Chloride ER [K-Dur 10] 20 meq PO DAILY 04/05/21 05/06/21 History Sennosides [Senna] 8.6 mg PO DAILY 04/05/21 05/06/21 History Tamsulosin HCl [Flomax] 0.4 mg PO DAILY 04/05/21 05/06/21 History Acetaminophen Tab [Tylenol] 500 mg PO Q6HR PRN tab 04/10/21 05/06/21 Rx Folic Acid 1 mg PO DAILY@1200 tab 04/10/21 05/06/21 Rx Thiamine [Vitamin B-1] 100 mg PO DAILY@1200 tab 04/10/21 05/06/21 Rx carvediloL [Coreg] 3.125 mg PO BID-W/MEALS tab 04/10/21 05/06/21 Rx Multivitamins, Thera [Multivitamin 1 tab PO DAILY@1200 05/06/21 05/06/21 History (formulary)] Omeprazole 20 mg PO DAILY 05/06/21 05/06/21 History Simvastatin [Zocor] 10 mg PO DAILY 05/06/21 05/06/21 History Allergies Allergy/AdvReac Type Severity Reaction Status Date / Time No Known Allergies Allergy Verified 05/06/21 23:13 Physical Examination Osteopathic Statement: *. No significant issues noted on an osteopathic structural exam other than those noted in the History and Physical/Consult. Patient is alert and oriented x1 appears somewhat unkempt is in no acute distress. They does not appear septic. On exam the patient has tenderness to palpation of his thoracic spine. No fluctuance edema. There is slight ballottement over this area. Some paraspinal tenderness. No tenderness to palpation of any other major joints of his lower extremity is bilaterally her upper extremity's bilaterally is able to move all these without any pain as well. Lower extremities with 3 out of 5 strength in all major muscle groups secondary to cooperation in the current medical state of the patient. Upper extremities show 3/5 strength in all major muscle groups. Due to his current medical state and cooperation No focal deficits and upper shoulder lower extremity motor exams There is FROM that is painless of the b/l UE and LE in all major joints. They are intact to light touch sensation in L2 to S1 nerve distribution. Patient has palpable dorsalis pedis was posterior tibial pulses. Compartments are soft and compressible. Patient shows a negative Homans, Huggins's, negative Babinski's negative clonus bilaterally. negative straight leg raise bilaterally. No tensioning signs. Cranial nerves II through XII are grossly intact. Overall alignment is well-maintained in the sagittal coronal planes. [] Results CT scans from [facility] of the head and neck thoracic and lumbar spine are reviewed. His demonstrate some spondylotic changes throughout the cervical thoracic and lumbar spine. There is what appears to be acute T5 burst-type compression fracture that has about 30% compression noted no retropulsion. No stenosis in this area. There is a chronic appearing T7 compression fracture that is 50% compressed however appears more chronic in nature with scrotal s clerotic changes. Overall kyphotic alignment is noted within the thoracic spine. There is no acute kyphotic segments that are noted. Lumbar spine does have some spondylotic and degenerative changes but overall alignment is fairly well maintained there is facet arthrosis throughout. No fracture dislocations noted here. Pelvic CT scan demonstrate no fracture or dislocation at this time. Head CTs were read as negative for acute bleed or acute intracranial changes. - Labs Labs: Abnormal Lab Results - Last 24 Hours (Table) 05/06/21 05/06/21 Range/Units 22:42 22:42 WBC 11.5 H (3.8-10.6) k/uL Plt Count 140 L (150-450) k/uL Neutrophils # 10.1 H (1.3-7.7) k/uL Lymphocytes # 0.9 L (1.0-4.8) k/uL BUN 22 H (9-20) mg/dL Total Bilirubin 1.5 H (0.2-1.3) mg/dL H & H 05/06/21 Range/Units 22:42 Hgb 15.0 (13.0-17.5) gm/dL Hct 44.9 (39.0-53.0) % Result Diagrams: 05/06/21 22:42 05/06/21 22:42 Assessment and Plan Assessment: 81-year-old male status post fall from standing with mental status changes and generalized weakness T5 likely acute compression fracture with T7 chronic compression fracture Osteoporosis Complex medical patient multiple medical comorbidities Plan: -Appreciate career development consultant and team management. -Activity: Ambulate QID, OOB all meals, up and about, limit lifting bending twisting to less than 5 lbs. Use walker or cane if needed for stability. -Daily PT/OT, increase ambulation strength and balance. -Obtaine TLSO brace for attempted ambulation and up and about -Pain control: Adequate at this time -Meds: reviewed -GI ppx: senna, Miralax -DVT PPX: Per primary team -Hygiene: Maintain good hygiene, recommend log rolls every 2-3 hours -Encourage IS 10x/hr -No emergent orthopedic surgical intervention warranted at this time patient needs further medical workup -Dispo: Pending
--- NOTE | 2021-05-07 11:34 | P.CNNES ---
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 She was obtained from medical record He presented to outside hospital after a fall and hitting his head. Per outside record is seems that the patient was trying to get out of bed and fell and he's been feeling weak and tired for the last few days. He seems to be also more confused and weak throughout. She had CT of the brain, cervical thoracic and lumbar spine at outside facility and is noted that the patient has acute fracture over the T5 and acute right rib 6th to 7th fracture. He also has chronic fracture over the T7. It seems that the patient also was noted to have positive urinary tract infection and he has a Linares catheter that was replaced there. He was given morphine at the outside facility as well as ceftriaxone for the acute urinary tract infection. Regarding the CT of the head there is no bleeding. Per the patient's nurse she stated that the patient because of his falls he had dry blood in the right ear and there is no clear fluid from any of the nose or the ears. Of note, patient had recurrent falls at home as a result his anticoagulation or helped and it's been held now for months. He's been in [facility] but he exha usted his days so he is been living with his son. Patient is on aspirin 81 mg daily, cinnamon 25-100 one tablet 3 times a day, Coreg, folic acid 1 mg daily, Lasix, magnesium, potassium, Flomax, thiamine 100 mg daily, vitamin D3 Some other workup in our facility consisted of: Initial vital signs his blood pressure of 104/72, heart rate of 95, respiratory of 18, temperature of 98.1 Fahrenheit axillary and pulse ox of 95% room air. Has been afebrile in our facility Initial CBC with differential as the white blood cells 11.5 with which is slightly elevated. His platelet is 140 otherwise the rest of the CBC with differential is unremarkable. Chemistry panel seems unremarkable. Initial serum glucose is 91. The AST of 17 and ALT of 6. Martin virus PCR was not detected. CT of the head stat was done on 05/07/2021 since the patient altered mental status: Was reported as moderate generalized atrophy and patchy burden of chronic small vessel ischemic disease. 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 No acute intracranial abnormality seen. Review of Systems Review of system is limited but the per positive and negative as per HPI. Past Medical History Past Medical History: Atrial Fibrillation History of Any Multi-Drug Resistant Organisms: None Reported Past Surgical History: Unable to Obtain Past Anesthesia/Blood Transfusion Reactions: No Reported Reaction Past Psychological History: No Psychological Hx Reported Smoking Status: Never smoker Past Alcohol Use History: None Reported Past Drug Use History: None Reported Medications and Allergies Home Medications Medication Instructions Recorded Confirmed Type Aspirin 81 mg PO DAILY 04/05/21 05/06/21 History Bethanechol Chloride 25 mg PO BID 04/05/21 05/06/21 History Carbidopa-Levodopa 25-100 mg 1 tab PO TID 04/05/21 05/06/21 History [Sinemet 25-100 mg] Cholecalciferol [Vitamin D3 (25 50 mcg PO DAILY 04/05/21 05/06/21 History Mcg = 1000 Iu)] Furosemide [Lasix] 20 mg PO DAILY 04/05/21 05/06/21 History Magnesium Oxide [Magox 400] 400 mg PO DAILY 04/05/21 05/06/21 History Potassium Chloride ER [K-Dur 10] 20 meq PO DAILY 04/05/21 05/06/21 History Sennosides [Senna] 8.6 mg PO DAILY 04/05/21 05/06/21 History Tamsulosin HCl [Flomax] 0.4 mg PO DAILY 04/05/21 05/06/21 History Acetaminophen Tab [Tylenol] 500 mg PO Q6HR PRN tab 04/10/21 05/06/21 Rx Folic Acid 1 mg PO DAILY@1200 tab 04/10/21 05/06/21 Rx Thiamine [Vitamin B-1] 100 mg PO DAILY@1200 tab 04/10/21 05/06/21 Rx carvediloL [Coreg] 3.125 mg PO BID-W/MEALS tab 04/10/21 05/06/21 Rx Multivitamins, Thera [Multivitamin 1 tab PO DAILY@1200 05/06/21 05/06/21 History (formulary)] Omeprazole 20 mg PO DAILY 05/06/21 05/06/21 History Simvastatin [Zocor] 10 mg PO DAILY 05/06/21 05/06/21 History Allergies Allergy/AdvReac Type Severity Reaction Status Date / Time No Known Allergies Allergy Verified 05/06/21 23:13 Physical Examination - Vital Signs Vital Signs: Vital Signs Temp Pulse Pulse Resp BP BP Pulse Ox 05/07/21 09:38 98.0 F 116 H 16 106/70 95 05/07/21 07:18 97.9 F 117 H 17 110/73 94 L 05/07/21 02:43 98.1 F 98 16 120/86 97 05/07/21 01:07 98.1 F 95 15 120/86 96 05/07/21 00:00 96 20 120/88 95 05/06/21 23:00 95 18 95/68 95 05/06/21 22:16 98.1 F 95 18 104/72 95 Intake and Output 05/06/21 05/07/21 05/07/21 22:59 06:59 14:59 Intake Total 650 Output Total 150 Balance 500 Intake: Intake, IV Titration 650 Amount Sodium Chloride 0.9% 1, 650 000 ml @ 130 mls/hr IV . Q7H42M [facility] Rx#:[id number] Output: Urine 150 Other: Voiding Method Indwelling Catheter Weight 77.564 kg 77.564 kg GENERAL: The patient is lying in bed and is not in acute distress. HENT: Has dry blood out of the right ear but no acute bleeding note. CHEST: The heart rate is regular rate rhythm. No murmurs to auscultation. LUNG: Clear to auscultation bilaterally no wheezing noted throughout. Not labored breathing. ABDOMEN/GI: Bowel sounds present in all 4 quadrants. No tenderness to palpation throughout. NEUROLOGICAL: Higher mental function: The patient is drowsy but is awakeable to voice. He is oriented to self and stated he is [place]. He stated the year is 2001 and did not tell me the month. He is able to name some objects (pen and watch). He is able to follow simple commands (showing thumbs up and smiling). No aphasia and no neglect. Cranial nerves: The pupils are round, equal and reactive to light. Visual leary was hard to assess because of his cooperation. Extraocular movement is limited he was looking to right and left and no appreciable nystagmus. Right lower facial droop. Has severe hearing loss bilaterally to hand rub. Tongue is midline and moves side to side. Has mild to moderate dysarthria. Motor: Gait is deferred. The strength is moving all extremities equally above gravity without drift. Normal tone and bulk No resting tremor.. Cerebellum: Could not assess. Sensation: Difficult to assess because of his cooperation but on repeated upper was normal to touch. Reflexes (right/left): 2+ throughout except ankles are 1+ bilaterally. Plantars are mute bilaterally. Results - Laboratory Findings CBC and BMP: 05/06/21 22:42 05/06/21 22:42 Abnormal Lab Findings: Abnormal Labs 05/06/21 05/06/21 22:42 22:42 WBC 11.5 H Plt Count 140 L Neutrophils # 10.1 H Lymphocytes # 0.9 L BUN 22 H Total Bilirubin 1.5 H Assessment and Plan Assessment: Acute on chronic recurrent falls. Seems due to underlying acute UTI and hx of Parkinson's disease Altered mental status due to recent UTI--currently is back to baseline (per the family) Recent right facial droop with dysarthria not sure if this is a chronic or acute. 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 Reported acute fracture over the T5 and ribs 6th-7th over outside facility report Chronic fracture over the T7 (per outside facility report). History of underlying Dementia (baseline oriented to self and place) Atrial fibrillation on anticoagulation since July 2020 because of the recurrent falls History of TIA Acute UTI. History of dysphagia History of pacemaker since 2011 History of traumatic brain injury 2019 History of coronary artery disease Hyperlipidemia Plan: * I ordered TSH, vitamin B12, folate level. I also ordered hemoglobin A1c to see whether the patient has diabetes that can give neuropathy can also inc reased risk of falls. * Ordered routine EEG. We will not start the patient on antiepileptic drugs un less there is epileptiform discharges or seizure on the EEG. * Ordered the carotid duplex * Recommend orthostatic vitals once the patient is stable. * Every 4 hours neuro checks * Cannot get MRI of the brain because of the patient the pacemaker. Will consider getting repeat computed tomography scan within 24-48 hours to see whether there is any changes to suggest any acute or subacute ischemic stroke especially with unknown if whether this is old right facial droop with dyarthria or not. * From a neurological perspective consider restarting aspirin 81 mg home dose but will lead defer that to the orthopedic surgery team and primary team what whether they feel it appropriate at this state or not. Started on Lipitor 10mg qhs (on simvastatin 10mg at home). * Placed on cardiac monitoring * Consulted PT, OT and [employer] * Recommend ENT consult * We'll defer the thoracic fracture to the orthopedic surgery team. * Recommend that general surgery team since the patient has rib fractures. * We'll defer the rest of the medical management to primary team. The plan was discussed with the patient's nurse. Thank you for the consultation. Alden Garcia M.D. Neuro-Hospitalist Time with Patient: Greater than 30
[2021-05-07] MEDS: FAMOTIDINE 20 MG TAB PO SCH ×2 (13:34→21:11)
[2021-05-07] MEDS: CARBIDOPA-LEVODOPA 25-100 MG 1 EACH TAB PO SCH ×3 (13:35→21:11)
--- NOTE | 2021-05-07 14:44 | US ---
EXAMINATION TYPE: US carotid duplex BILAT DATE OF EXAM: 05/07/2021 COMPARISON: NONE CLINICAL HISTORY: right facial droop. stroke.. right facial drooping, pt a bit confused,states no st roke EXAM MEASUREMENTS: RIGHT: Peak Systolic Velocity (PSV) cm/sec ----- Right CCA: 41.3 ----- Right ICA: 52.4 ----- Right ECA: 61.6 ICA/CCA ratio: 1.3 RIGHT: End Diastole cm/sec ----- Right CCA: 8.4 ----- Right ICA: 23.9 ----- Right ECA: 6.8 LEFT: Peak Systolic Velocity (PSV) cm/sec ----- Left CCA: 63.6 ----- Left ICA: 74.4 ----- Left ECA: 63.1 ICA/CCA ratio: 1.2 LEFT: End Diastole cm/sec ----- Left CCA: 15.2 ----- Left ICA: 28.2 ----- Left ECA: 9.9 VERTEBRALS (direction of flow): Right Vertebral: Antegrade Left Vertebral: Antegrade Rhythm: Arrhythmia Heterogeneous plaque at bilateral bulbs with no significant stenosis seen IMPRESSION: There is antegrade flow in the vertebral arteries. Images and measurements suggest less than 50% sten osis in both internal carotid arteries. Criteria for Assigning % of Stenosis / Diameter reduction (Estimation based on the indirect measurements of the internal carotid artery velocities (ICA PSV). 1. Normal (no stenosis)=ICA PSV < 125 cm/s: ratio < 2.0: ICA EDV<40 cm/s. 2. Less than 50% stenosis=ICA PSV < 125 cm/s: ratio < 2.0: ICA EDV<40 cm/s. 3. 50 to 69% stenosis=ICA PSV of 125 to 230 cm/s: ration 2.0 ? 4.0: ICA EDV 40-100 cm/s. 4. Greater than 70% stenosis to near occlusion= ICA PSV > 230 cm/s: ratio > 4.0: ICA EDV > 100 cm/s. 5. Near occlusion= ICA PSV velocities may be low or undetectable: variable ratio and ICA EDV. 6. Total occlusion=unable to detect flow.
[2021-05-07] MEDS ORDERED: OXYMETAZOLINE 0.05% NASL SPRAY 1 SPRAY BOTTLE RIGHT EAR PRN (16:51)
[2021-05-07 18:17] LABS: Folate, Serum >24.0 ng/mL
--- NOTE | 2021-05-07 18:47 | P.HPIM ---
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 She was obtained from medical record He presented to outside hospital after a fall and hitting his head. Per outside record is seems that the patient was trying to get out of bed and fell and he's been feeling weak and tired for the last few days. He seems to be also more confused and weak throughout. She had CT of the brain, cervical thoracic and lumbar spine at outside facility and is noted that the patient has acute fracture over the T5 and acute right rib 6th to 7th fracture. He also has chronic fracture over the T7. It seems that the patient also was noted to have positive urinary tract infection and he has a Linares catheter that was replaced there. He was given morphine at the outside f acility as well as ceftriaxone for the acute urinary tract infection. Regarding the CT of the head there is no bleeding. Per the patient's nurse she stated that the patient because of his falls he had dry blood in the right ear and there is no clear fluid from any of the nose or the ears. Initial vital signs his blood pressure of 104/72, heart rate of 95, respiratory of 18, temperature of 98.1 Fahrenheit axillary and pulse ox of 95% room air. Has been afebrile in our facility Initial CBC with differential as the white blood cells 11.5 with which is slightly elevated. His platelet is 140 otherwise the rest of the CBC with differential is unremarkable. Chemistry panel seems unremarkable. Initial serum glucose is 91. The AST of 17 and ALT of 6. Martin virus PCR was not detected. CT of the head stat was done on 05/07/2021 since the patient altered mental status: Was reported as moderate generalized atrophy and patchy burden of chronic small vessel ischemic disease. 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 No acute intracranial abnormality seen. Review of Systems ROS unobtainable: due to mental status Past Medical History Past Medical History: Atrial Fibrillation History of Any Multi-Drug Resistant Organisms: None Reported Past Surgical History: Unable to Obtain Past Anesthesia/Blood Transfusion Reactions: No Reported Reaction Past Psychological History: No Psychological Hx Reported Smoking Status: Never smoker Past Alcohol Use History: None Reported Past Drug Use History: None Reported Medications and Allergies Home Medications Medication Instructions Recorded Confirmed Type Aspirin 81 mg PO DAILY 04/05/21 05/06/21 History Bethanechol Chloride 25 mg PO BID 04/05/21 05/06/21 History Carbidopa-Levodopa 25-100 mg 1 tab PO TID 04/05/21 05/06/21 History [Sinemet 25-100 mg] Cholecalciferol [Vitamin D3 (25 50 mcg PO DAILY 04/05/21 05/06/21 History Mcg = 1000 Iu)] Furosemide [Lasix] 20 mg PO DAILY 04/05/21 05/06/21 History Magnesium Oxide [Magox 400] 400 mg PO DAILY 04/05/21 05/06/21 History Potassium Chloride ER [K-Dur 10] 20 meq PO DAILY 04/05/21 05/06/21 History Sennosides [Senna] 8.6 mg PO DAILY 04/05/21 05/06/21 History Tamsulosin HCl [Flomax] 0.4 mg PO DAILY 04/05/21 05/06/21 History Acetaminophen Tab [Tylenol] 500 mg PO Q6HR PRN tab 04/10/21 05/06/21 Rx Folic Acid 1 mg PO DAILY@1200 tab 04/10/21 05/06/21 Rx Thiamine [Vitamin B-1] 100 mg PO DAILY@1200 tab 04/10/21 05/06/21 Rx carvediloL [Coreg] 3.125 mg PO BID-W/MEALS tab 04/10/21 05/06/21 Rx Multivitamins, Thera [Multivitamin 1 tab PO DAILY@1200 05/06/21 05/06/21 History (formulary)] Omeprazole 20 mg PO DAILY 05/06/21 05/06/21 History Simvastatin [Zocor] 10 mg PO DAILY 05/06/21 05/06/21 History Allergies Allergy/AdvReac Type Severity Reaction Status Date / Time No Known Allergies Allergy Verified 05/06/21 23:13 Physical Exam Vitals: Vital Signs Temp Pulse Pulse Resp BP BP Pulse Ox 05/07/21 09:38 98.0 F 116 H 16 106/70 95 05/07/21 07:18 97.9 F 117 H 17 110/73 94 L 05/07/21 02:43 98.1 F 98 16 120/86 97 05/07/21 01:07 98.1 F 95 15 120/86 96 05/07/21 00:00 96 20 120/88 95 05/06/21 23:00 95 18 95/68 95 05/06/21 22:16 98.1 F 95 18 104/72 95 Intake and Output 05/06/21 05/07/21 05/07/21 22:59 06:59 14:59 Intake Total 650 Output Total 150 Balance 500 Intake: Intake, IV Titration 650 Amount Sodium Chloride 0.9% 1, 650 000 ml @ 130 mls/hr IV . Q7H42M [facility] Rx#:[id number] Output: Urine 150 Other: Voiding Method Indwelling Catheter Indwelling Catheter Weight 77.564 kg 77.564 kg General appearance: alert Head exam: Present: normocephalic Eye exam: Present: PERRL, EOMI. Absent: scleral icterus, conjunctival injection ENT exam: Present: mucous membranes dry Neck exam: Present: normal inspection, full ROM. Absent: tenderness Respiratory exam: Present: rales (Left base), chest wall tenderness (Right posterior ribs). Absent: respiratory distress, wheezes, rhonchi, stridor, accessory muscle use, decreased breath sounds, prolonged expiratory Cardiovascular Exam: Present: regular rate, normal rhythm, normal heart sounds. Absent: systolic murmur, diastolic murmur, rubs, gallop GI/Abdominal exam: Present: soft, other (Old surgical scar right abdomen). Absent: distended, tenderness, guarding, rebound, rigid, mass Extremities exam: Present: normal inspection, normal capillary refill. Absent: pedal edema, calf tenderness Back exam: Present: vertebral tenderness Neurological exam: Present: alert. Absent: oriented X3 (Patient is oriented to person only), motor sensory deficit Skin exam: Present: warm, dry, intact, normal color. Absent: rash Results CBC & Chem 7: 05/06/21 22:42 05/06/21 22:42 Labs: Abnormal Lab Results - Last 24 Hours (Table) 05/06/21 05/06/21 Range/Units 22:42 22:42 WBC 11.5 H (3.8-10.6) k/uL Plt Count 140 L (150-450) k/uL Neutrophils # 10.1 H (1.3-7.7) k/uL Lymphocytes # 0.9 L (1.0-4.8) k/uL BUN 22 H (9-20) mg/dL Total Bilirubin 1.5 H (0.2-1.3) mg/dL Assessment and Plan Assessment: 1. Altered mental status; possibly secondary to acute UTI; per family patient is back at his baseline - blood culture and urine cultures are obtained and results are pending; we will continue with IV Rocephin at this time - Neurology on board; CT of the brain, bilateral carotid Doppler is ordered and pending 2. Recurrent falls; possibly secondary to recurrent UTIs versus advancing Parkinson's disease; we will know workup is in progress; recommend PT/OT evaluation once workup is complete 3. Acute fracture over T7; orthopedic surgery on board and no surgical intervention is recommended 4. Recurrent UTIs/acute UTI; we will repeat UA with culture and sensitivity with further recommendations once results are available; patient was given IV R ocephin at the outside facility for positive UA 5. Atrial fibrillation; patient has been off anticoagulation since July 2020 due to recurrent falls 6. Bleeding left ear; ENT is consulted and recommendations are pending 7. Hyperlipidemia; Lipitor 10 mg by mouth daily at bedtime 8. Parkinson's disease; Sinemet 64534 by mouth 3 times a day DVT prophylaxis; SCDs only CODE STATUS; full code
[2021-05-07 19:43] LABS: Hemoglobin A1C 4.7 % (4.0-6.0)
[2021-05-07] MEDS: OXYMETAZOLINE 0.05% NASL SPRAY 1 SPRAY BOTTLE RIGHT EAR SCH ×2 (20:07→23:15)
[2021-05-07] MEDS: ATORVASTATIN 10 MG TAB PO SCH (21:11)
--- NOTE | 2021-05-07 22:38 | CT ---
EXAMINATION TYPE: CT facial bones wo con DATE OF EXAM: 05/07/2021 COMPARISON: None HISTORY: FALL CT DLP: 583 mGycm Automated exposure control for dose reduction was used. Images obtained from the bottom of the mandible to the top of the frontal sinuses without contrast. The mandibular ring appears intact. Temporomandibular joints are intact. The zygomatic arches appear normal. Maxilla is intact. There is fairly normal aeration of the paranasal sinuses. I see no bony de structive process. Nasal bone appears deviated slightly to the right side that could relate to old in jury. I see no displaced fracture. The orbital margins are intact. There is no evidence of orbital blowout fracture. There is no retro-o rbital mass. There is diffuse cerebral atrophy. IMPRESSION: Cerebral atrophy. No acute abnormality of the facial bones. There is probably an old nasal bone fracture. This appears unchanged compared to the head CT scan of 04/05/2021.
[2021-05-08] MEDS: OXYMETAZOLINE 0.05% NASL SPRAY 1 SPRAY BOTTLE RIGHT EAR SCH ×3 (06:03→16:58)
[2021-05-08] MEDS: SODIUM CHLORIDE 0.9% 1,000 ML IV SCH ×2 (06:03→14:22)
[2021-05-08] MEDS: FAMOTIDINE 20 MG TAB PO SCH ×3 (08:15→20:51)
[2021-05-08] MEDS: CARBIDOPA-LEVODOPA 25-100 MG 1 EACH TAB PO SCH ×4 (08:15→20:51)
[2021-05-08 12:09] LABS: Basophils % (A) 0 %; Eosinophils # (A) 0.1 k/uL (0-0.7); Eosinophils % (A) 2 %; HCT 41.9 % (39.0-53.0); HGB 14.3 gm/dL (13.0-17.5); Lymphocytes # (A) 0.7 k/uL (1.0-4.8); Lymphocytes % (A) 11 %; MCH 31.7 pg (25.0-35.0); MCHC 34.1 g/dL (31.0-37.0); MCV 93.1 fL (80.0-100.0); Mean Platelet Volume 6.9; Monocytes # (A) 0.3 k/uL (0-1.0); Monocytes % (A) 5 %; Neutrophils # (A) 5.1 k/uL (1.3-7.7); Neutrophils % (A) 81 %; Platelet Count 167 k/uL (150-450); Poikilocytosis Slight; RBC 4.51 m/uL (4.30-5.90); RDW 14.4 % (11.5-15.5); WBC 6.3 k/uL (3.8-10.6)
[2021-05-08 12:27] LABS: African American GFR (CKD) >90 (>60 ml/min/1.73 sqM); Anion Gap 7 mmol/L; Blood Urea Nitrogen 22 mg/dL (9-20); Calcium 9.3 mg/dL (8.4-10.2); Carbon Dioxide 25 mmol/L (22-30); Chloride 111 mmol/L (98-107); Glucose 96 mg/dL (74-99); Non-African American GFR(CKD) 85 (>60 ml/min/1.73 sqM); Potassium 3.8 mmol/L (3.5-5.1); Sodium 143 mmol/L (137-145)
--- NOTE | 2021-05-08 13:06 | EEG ---
ELECTROENCEPHALOGRAM REPORT DATE OF SERVICE: 05/08/2021 PREAMBLE: This is an 81-year-old male who has altered mental status. The patient suffered from a fall and hitting his head. He has been more altered lately. This study is performed to rule out any epileptiform activity. EEG FINDINGS: This is a 21 channel routine EEG recording utilizing 10/20 international system with referential and bipolar montages. Background consists of well developed, well regulated, moderate amplitude activity in 6-7 hertz theta, seen in bihemispheric region. Background does not seem to be clearly reactive to eye opening and closing. Photic stimulation was not performed. Different stages of sleep were not seen. No focal or generalized epileptiform activity was seen. IMPRESSION: This is an abnormal EEG due to background slowing of mild to moderate degree. This is suggestive of generalized cerebral dysfunction as can be seen with toxic metabolic encephalopathy or due to diffuse structural brain abnormality. No epileptiform activity was seen. MMNICHELLEL / IJN: [id number] /
--- NOTE | 2021-05-08 13:39 | P.PN ---
Subjective Progress Note Date: 05/08/21 Principal diagnosis: Acute T5 compression fracture Chronic T7 compression fracture Altered mental status Noted history of Parkinson's, dementia, closed head injury Other medical comorbidities Patient was evaluated today at bedside with his mental status seems to be worse than yesterday. He is unable to answer any of my questions appropriately. When asked about his back pain, he does not respond. Objective - Vital Signs Vital signs: Vital Signs Temp 98.1 F 05/08/21 08:00 Pulse 86 05/08/21 08:00 Resp 19 05/08/21 08:00 BP 155/92 05/08/21 08:00 Pulse Ox 99 05/08/21 08:00 Intake & Output 05/07/21 05/08/21 05/08/21 18:59 06:59 18:59 Intake Total 360 Output Total 250 Balance 360 -250 Intake: Oral 360 Output: Urine 250 Other: Voiding Method Indwelling Catheter Indwelling Catheter Indwelling Catheter # Voids 800 - Exam Exam was very limited due to patient's mental state Minimal tenderness was noted with palpation in the thoracic spine area, no obvious cervical or lumbar pain reproduced No obvious tenderness with palpation of the bilateral upper extremities or bilateral lower extremities Gentle passive range of motion of the bilateral upper and lower extremities reproduces no obvious pain symptoms Skin is warm to touch of the bilateral upper and lower extremities - Labs CBC & Chem 7: 05/08/21 11:55 05/08/21 11:55 Labs: Abnormal Lab Results - Last 24 Hours (Table) 05/08/21 05/08/21 Range/Units 11:55 11:55 Lymphocytes # 0.7 L (1.0-4.8) k/uL Chloride 111 H (98-107) mmol/L BUN 22 H (9-20) mg/dL Microbiology - Last 24 Hours (Table) 05/07/21 23:22 Urine Culture - Preliminary Urine,Catheterized Assessment and Plan Assessment: Acute T5 compression fracture Chronic T7 compression fracture Mental Status Noted history of Parkinson's disease, dementia, closed head injury Other medical comorbidities Plan: Prescription for a TLSO brace was provided and placed in chart, recommend use when up and about. Patient seems to be very medically decondition and spends a lot of time in bed. If the patient is ambulatory, utilize TLSO brace and walker at all times Discussed with nursing today at bedside, they have not been able to contact the patient's son who he apparently lives with. Patient does require assistance with all ADLs, patient is a candidate for permanent residential placement GI and DVT prophylaxis per primary medical service We will be available for any further questions regarding this brace, would recommend follow-up with Dr. Blake in the next 2-3 weeks for x-ray evaluation Time with Patient: Less than 30
[2021-05-08 17:12] LABS: Appearance,Urine Turbid (Clear); Bacteria,Urine Rare /hpf; Bilirubin,Urine Negative (Negative); Blood,Urine Large (Negative); Color,Urine Yellow; Glucose,Urine (UA) Negative (Negative); Ketones,Urine Negative (Negative); Leukocyte Esterase,Urine Large (Negative); Mucus,Urine Many /hpf; Nitrite,Urine Negative (Negative); PH, Urine 5.5 (5.0-8.0); Protein,Urine 1+ (Negative); RBC,Urine >182 /hpf (0-5); Specific Gravity,Urine 1.024 (1.001-1.035); Urobilinogen,Urine <2.0 mg/dL (<2.0); WBC,Urine >182 /hpf (0-5)
--- NOTE | 2021-05-08 17:24 | P.PN ---
Subjective Progress Note Date: 05/08/21 Patient is a 81-year-old male, seen for a follow-up. Patient initially seen by Dr. Alden Garcia. Please refer to his note for details. Patient has history of Parkinson disease, dementia, came with recurrent falls. Patient suffered from compression fracture of the thoracic region as well as rib fracture. Neurology was consulted for altered mental status. Patient was found to have some bleeding from the right ear but it was dried blood. ENT is closely following. Patient's mentation was noted to be back to baseline. He does have dementia, Parkinson's disease and a pacemaker. He was living at [facility], but because of insurance issues, he was sent back to his home, living with his son. He was home for 10 days when he suffered from a fall and was brought to the hospital. Per nursing report, he is not alert. He does get agitated, slightly swings his arms and legs. Objective - Vital Signs Vital signs: Vital Signs Temp 97.7 F 05/08/21 14:00 Pulse 96 05/08/21 14:00 Resp 20 05/08/21 14:00 BP 137/89 05/08/21 14:00 Pulse Ox 95 05/08/21 14:00 Intake & Output 05/07/21 05/08/21 05/08/21 18:59 06:59 18:59 Intake Total 360 Output Total 250 200 Balance 360 -250 -200 Intake: Oral 360 Output: Urine 250 200 Other: Voiding Method Indwelling Catheter Indwelling Catheter Indwelling Catheter # Voids 800 - Exam GENERAL: The patient is lying in bed and is not in acute distress. NEUROLOGICAL: Higher mental function: The patient is awake, but slow mentation, prolonged latency time to answer questions. He states it is March and the year is 2001. He is able to name some objects (pen and watch). No aphasia and no neglect. Cranial nerves: The pupils are round, equal and reactive to light. Visual leary was hard to assess because of his cooperation. Extraocular movement is limited he was looking to right and left and no appreciable nystagmus. Right lower facial droop. Has severe hearing loss bilaterally to hand rub. Tongue is midline and moves side to side. Has mild to moderate dysarthria. Motor: Gait is deferred. The strength is moving all extremities equally above gravity without drift. Tone is moderately increased bilaterally. Bulk of muscles normal. No resting tremor.. 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 Biceps and triceps looks normal. He can wiggle his feet. Cerebellum: Could not assess. Sensation: Difficult to assess because of his cooperation but on repeated upper was normal to touch. Reflexes (right/left): 2+ throughout except ankles are 1+ bilaterally. Plantars are downgoing bilaterally. - Labs CBC & Chem 7: 05/08/21 11:55 05/08/21 11:55 Labs: Abnormal Lab Results - Last 24 Hours (Table) 05/08/21 05/08/21 05/08/21 Range/Units 11:55 11:55 16:55 Lymphocytes # 0.7 L (1.0-4.8) k/uL Chloride 111 H (98-107) mmol/L BUN 22 H (9-20) mg/dL Urine Protein 1+ H (Negative) Urine Blood Large H (Negative) Ur Leukocyte Esterase Large H (Negative) Urine RBC >182 H (0-5) /hpf Urine WBC >182 H (0-5) /hpf Urine WBC Clumps Many H (None) /hpf Urine Bacteria Rare H (None) /hpf Urine Mucus Many H (None) /hpf Microbiology - Last 24 Hours (Table) 05/07/21 23:22 Urine Culture - Preliminary Urine,Catheterized Assessment and Plan Assessment: Acute on chronic recurrent falls. Seems due to underlying acute UTI and hx of Parkinson's disease Altered mental status due to recent UTI--currently is back to baseline (per the family) Recent right facial droop with dysarthria not sure if this is a chronic or acute. 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 Reported acute fracture over the T5 and ribs 6th-7th over outside facility report Chronic fracture over the T7 (per outside facility report). History of underlying Dementia (baseline oriented to self and place) Atrial fibrillation on anticoagulation since July 2020 because of the recurrent falls History of TIA Acute UTI. History of dysphagia History of pacemaker since 2011 History of traumatic brain injury 2019 History of coronary artery disease Hyperlipidemia Plan: * B12 505, TSH 3.050, folate > 24.0, hemoglobin A1c 4.7. All normal. * EEG was performed, which revealed background slowing of mild to moderate degree, suggestive of encephalopathy. No epileptiform activity was seen. No indication for antiepileptic medication. * Carotid duplex showed antegrade flow in the vertebral arteries. No significant stenosis in either ICA. * Recommend orthostatic vitals once the patient is stable. * Cannot get MRI of the brain because of the patient the pacemaker. ENT is foll owing. Patient undergoing CT of the mastoid as per recommendation from ENT. * From a neurological perspective consider restarting aspirin 81 mg home dose but will lead defer that to the orthopedic surgery team and primary team what whether they feel it appropriate at this state or not. Started on Lipitor 10mg qhs (on simvastatin 10mg at home). * Telemetry monitoring showing atrial fibrillation and paced to 80-90/m. 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 * We'll defer the rest of the medical management to primary team.
--- NOTE | 2021-05-08 17:31 | P.GSCN ---
History of Present Illness Consult date: 05/08/21 Reason for Consult: Bloody Otorrhea after a fall, right ear Requesting physician: Mary Vanessa History of present illness: This pt is a 81 year old male who fell last week and hit his head. Recently he has developed a right sided bloody otorrehea Head Ct was normal and I ordered a temporal bone CT but a facial CT was done by mistake. I will order another Temporal bone/mastoid Ct to rule out a temporal bone fracture. Pt has severe dementia and a history from the patient is impossible. History is from the chart and nurse. His otorrhea has improved since the start of his afrin nasal spray into his right ear and is doing well. Review of Systems - Constitutional Reports as per HPI - EENT Ears, nose, mouth and throat: Reports as per HPI - Cardiovascular Reports as per HPI - Respiratory Reports as per HPI - Gastrointestinal Reports as per HPI - Genitourinary Reports as per HPI - Musculoskeletal Reports as per HPI - Integumentary Reports as per HPI - Neurological Reports as per HPI - Psychiatric Reports as per HPI - Endocrine Reports as per HPI - Hematologic/Lymphatic Reports as per HPI - Allergic/Immunologic Reports as per HPI Past Medical History Past Medical History: Atrial Fibrillation History of Any Multi-Drug Resistant Organisms: None Reported Past Surgical History: Unable to Obtain Past Anesthesia/Blood Transfusion Reactions: No Reported Reaction Past Psychological History: No Psychological Hx Reported Smoking Status: Never smoker Past Alcohol Use History: None Reported Past Drug Use History: None Reported Medications and Allergies Home Medications Medication Instructions Recorded Confirmed Type Aspirin 81 mg PO DAILY 04/05/21 05/06/21 History Bethanechol Chloride 25 mg PO BID 04/05/21 05/06/21 History Carbidopa-Levodopa 25-100 mg 1 tab PO TID 04/05/21 05/06/21 History [Sinemet 25-100 mg] Cholecalciferol [Vitamin D3 (25 50 mcg PO DAILY 04/05/21 05/06/21 History Mcg = 1000 Iu)] Furosemide [Lasix] 20 mg PO DAILY 04/05/21 05/06/21 History Magnesium Oxide [Magox 400] 400 mg PO DAILY 04/05/21 05/06/21 History Potassium Chloride ER [K-Dur 10] 20 meq PO DAILY 04/05/21 05/06/21 History Sennosides [Senna] 8.6 mg PO DAILY 04/05/21 05/06/21 History Tamsulosin HCl [Flomax] 0.4 mg PO DAILY 04/05/21 05/06/21 History Acetaminophen Tab [Tylenol] 500 mg PO Q6HR PRN tab 04/10/21 05/06/21 Rx Folic Acid 1 mg PO DAILY@1200 tab 04/10/21 05/06/21 Rx Thiamine [Vitamin B-1] 100 mg PO DAILY@1200 tab 04/10/21 05/06/21 Rx carvediloL [Coreg] 3.125 mg PO BID-W/MEALS tab 04/10/21 05/06/21 Rx Multivitamins, Thera [Multivitamin 1 tab PO DAILY@1200 05/06/21 05/06/21 History (formulary)] Omeprazole 20 mg PO DAILY 05/06/21 05/06/21 History Simvastatin [Zocor] 10 mg PO DAILY 05/06/21 05/06/21 History Allergies Allergy/AdvReac Type Severity Reaction Status Date / Time No Known Allergies Allergy Verified 05/06/21 23:13 Surgical - Exam Osteopathic Statement: *. No significant issues noted on an osteopathic structural exam other than those noted in the History and Physical/Consult. Vital Signs Temp Pulse Resp BP Pulse Ox 98.1 F 95 18 104/72 95 05/06/21 22:16 05/06/21 22:16 05/06/21 22:16 05/06/21 22:16 05/06/21 22:16 - General well developed, well nourished, no distress, chronically ill - Eyes PERRL, normal ocular movement - ENT Clear fluid in the right ear canal from the afrin nasal spray instillation. no otorrhea noted, left ear canal and tm wnl. rest of the head and neck exam wnl. normal pinna, normal nares, normal mucosa, no congestion, decreased hearing - Neck no masses, no bruits, trachea midline, no lymphadectomy, no venous distension - Integumentary no rash, no growths - Neurologic disoriented, memory loss - Psychiatric other (severe dementia) Results - Labs 05/08/21 11:55 05/08/21 11:55 Abnormal Lab Results - Last 24 Hours (Table) 05/08/21 05/08/21 05/08/21 Range/Units 11:55 11:55 16:55 Lymphocytes # 0.7 L (1.0-4.8) k/uL Chloride 111 H (98-107) mmol/L BUN 22 H (9-20) mg/dL Urine Protein 1+ H (Negative) Urine Blood Large H (Negative) Ur Leukocyte Esterase Large H (Negative) Urine RBC >182 H (0-5) /hpf Urine WBC >182 H (0-5) /hpf Urine WBC Clumps Many H (None) /hpf Urine Bacteria Rare H (None) /hpf Urine Mucus Many H (None) /hpf Microbiology - Last 24 Hours (Table) 05/07/21 23:22 Urine Culture - Preliminary Urine,Catheterized Diabetes panel 05/06/21 05/08/21 Range/Units 22:42 11:55 Sodium 143 (137-145) mmol/L Potassium 3.8 (3.5-5.1) mmol/L Chloride 111 H (98-107) mmol/L Carbon Dioxide 25 (22-30) mmol/L BUN 22 H (9-20) mg/dL Creatinine 0.77 (0.66-1.25) mg/dL Glucose 96 (74-99) mg/dL Hemoglobin A1c 4.7 (4.0-6.0) % Calcium 9.3 (8.4-10.2) mg/dL Thyroid panel 05/06/21 Range/Units 22:42 TSH 3.050 (0.350-5.500) uIU/mL Calcium panel 05/08/21 Range/Units 11:55 Calcium 9.3 (8.4-10.2) mg/dL Pituitary panel 05/06/21 05/08/21 Range/Units 22:42 11:55 Sodium 143 (137-145) mmol/L Potassium 3.8 (3.5-5.1) mmol/L Chloride 111 H (98-107) mmol/L Carbon Dioxide 25 (22-30) mmol/L BUN 22 H (9-20) mg/dL Creatinine 0.77 (0.66-1.25) mg/dL Glucose 96 (74-99) mg/dL Calcium 9.3 (8.4-10.2) mg/dL TSH 3.050 (0.350-5.500) uIU/mL Adrenal panel 05/08/21 Range/Units 11:55 Sodium 143 (137-145) mmol/L Potassium 3.8 (3.5-5.1) mmol/L Chloride 111 H (98-107) mmol/L Carbon Dioxide 25 (22-30) mmol/L BUN 22 H (9-20) mg/dL Creatinine 0.77 (0.66-1.25) mg/dL Glucose 96 (74-99) mg/dL Calcium 9.3 (8.4-10.2) mg/dL Assessment and Plan Assessment: Bloody Otorrhea Plan: [facility] pt's bloody otorrhea has stopped and am awaiting a temporal bone ct for confirmation of no temporal bone fracture. If negative would continue the pt on ofloxacin drops for 5 days and a follow up in my office as needed. I ordered a temporal bone ct scan but a Facial CT was done in error. Have ordered a repeat scan and results are pending. Time with Patient: Greater than 30
[2021-05-08] MEDS: OFLOXACIN 0.3% OPHTH DROPS 5 ML BOTTLE RIGHT EAR SCH (20:51)
[2021-05-08] MEDS: ATORVASTATIN 10 MG TAB PO SCH (20:51)
--- NOTE | 2021-05-08 22:30 | CT ---
EXAMINATION TYPE: CT mastoid wo con DATE OF EXAM: 05/08/2021 COMPARISON: None HISTORY: Patient poor historian, Body otorrhea CT DLP: 360.7 mGycm Automated exposure control for dose reduction was used. Images are obtained from the skull base to the sella turcica without contrast. There is fairly normal aeration of the mastoid sinuses. Temporomandibular joints appear normal. There is bilateral normal aeration of the epitympanic recess and middle ear cavity. There is extensive jerrell ris in both external auditory canals. I see no focal bone destruction. The skull base is intact. Ther e is no evidence of posterior fossa mass. The internal auditory canals appear symmetric. There is no sign of cerebellopontine angle mass. IMPRESSION: No evidence of mastoiditis. No focal bone destruction. Bilateral debris in the external auditory canals. There is almost complete occlusion right external a uditory canal.
--- NOTE | 2021-05-09 01:18 | P.PN ---
Subjective Progress Note Date: 05/08/21 81-year-old gentleman with history of Parkinson's disease, multiple recurrent falls, dementia, atrial fibrillation not on anticoagulation since recurrent falls, TIA of March 2020, dysphagia, reported traumatic brain injury of 2019, pacemaker (since 2011), hyperlipidemia, coronary artery disease, abdominal aortic aneurysm who transferred from an outside hospital for further evaluation. She was obtained from medical record He presented to outside hospital after a fall and hitting his head. Per outside record is seems that the patient was trying to get out of bed and fell and he's been feeling weak and tired for the last few days. He seems to be also more confused and weak throughout. She had CT of the brain, cervical thoracic and lumbar spine at outside facility and is noted that the patient has acute fracture over the T5 and acute right rib 6th to 7th fracture. He also has chronic fracture over the T7. It seems that the patient also was noted to have positive urinary tract infection and he has a Lucas catheter that was replaced there. He was given morphine at the outside facility as well as ceftriaxone for the acute urinary tract infection. Regarding the CT of the head there is no bleeding. Per the patient's nurse she stated that the patient because of his falls he had dry blood in the right ear and there is no clear fluid from any of the nose or the ears. Initial vital signs his blood pressure of 104/72, heart rate of 95, respiratory of 18, temperature of 98.1 Fahrenheit axillary and pulse ox of 95% room air. Has been afebrile in our facility Initial CBC with differential as the white blood cells 11.5 with which is slightly elevated. His platelet is 140 otherwise the rest of the CBC with differential is unremarkable. Chemistry panel seems unremarkable. Initial serum glucose is 91. The AST of 17 and ALT of 6. Martin virus PCR was not detected. CT of the head stat was done on 05/07/2021 since the patient altered mental status: Was reported as moderate generalized atrophy and patchy burden of chronic small vessel ischemic disease. 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 No acute intracranial abnormality seen. 05/08/2021 Patient is seen and evaluated in follow up this morning and underwent EEG which was negative for any seizure like activity. Neurology following and recommending outpatient follow up. Patient was also evaluated by ent and started on ear antibiotic drops and using Afrin as needed to the ear for any further bleeding which has subsided as of now. Will continue to monitor for any signs of bl eeding. Patient has chronic lucas which was recently replaced and started on IV ceftriaxone and awaiting repeat urinalysis with culture as patient has history of recurrent UTIs. WBC is within normal limits and patient is afebrile. Patient denies any shortness of breath or palpitations. Patient tolerated diet with continued poor oral intake and requires assistance with meals. PT/OT to evaluate for possible Ecf placement. Physical exam: Gen: This is a 81 year old male, confused, with parkinsons tremor and dementia. HEENT: Head is atraumatic, normocephalic. Pupils equal, round. Sclerae is anic teric. NECK: Supple. No JVD. No lymphadenopathy. No thyromegaly. LUNGS: Clear to auscultation. No wheezes or rhonchi. No intercostal retractions. HEART: Regular rate and rhythm. No murmur. ABDOMEN: Soft. Bowel sounds are present. No masses. No tenderness. EXTREMITIES: No pedal edema. No calf tenderness. lower extremity dry skin noted bilaterally with poorly kept toenails NEUROLOGICAL: Patient is awake, alert and oriented x1. diffusely weak, confused. Assessment: -Altered mental status; possibly secondary to acute urinary tract infection with repeat urinalysis and culture pending. Patient continues on IV ceftriaxone. -Acute metabolic encephalopathy, multifactorial most likely related to advance dementia, dehydration -Recurrent falls; possibly secondary to recurrent UTIs versus advancing Parkinson's disease; PT/OT evaluation ordered and pending -Acute fracture over T7; orthopedic surgery on board and no surgical intervention is recommended, tlso brace ordered -Recurrent UTIs/acute UTI; was started on IV ceftriaxone at previous hospital and repeat UA with culture pending -Atrial fibrillation; patient has been off anticoagulation since July 2020 due to recurrent falls -Bleeding right ear; ENT following and bleeding has stopped with afrin to the right ear and abx ear drops, CT mastoid ordered -Hyperlipidemia; Lipitor 10 mg by mouth daily at bedtime -Parkinson's disease; Sinemet 03254 by mouth 3 times a day -DVT prophylaxis; SCDs only -full code Plan: Continue with current medications. Awaiting repeat urine with culture and maintained on Ceftriaxone. PT/OT to evaluate the patient. Patient needs YOLANDA on discharge. Recommend to continue with Afrin as needed to the right ear for bleeding. CT mastoid ordered and pending with ENT following. Neurology has evaluated the patient and EEG showed no seizure like activity. Case management and social work following with possible placement and need to discuss treatment plan and other discharge options with son of whom he lives with. Objective - Vital Signs Vital signs: Vital Signs Temp 98.1 F 05/08/21 08:00 Pulse 86 05/08/21 08:00 Resp 19 05/08/21 08:00 BP 155/92 05/08/21 08:00 Pulse Ox 99 05/08/21 08:00 Intake & Output 05/07/21 05/08/21 05/08/21 18:59 06:59 18:59 Intake Total 360 Output Total 250 Balance 360 -250 Intake: Oral 360 Output: Urine 250 Other: Voiding Method Indwelling Catheter Indwelling Catheter # Voids 800 - Labs CBC & Chem 7: 05/08/21 11:55 05/08/21 11:55
[2021-05-09] MEDS: SODIUM CHLORIDE 0.9% 1,000 ML IV SCH ×2 (06:58→12:37)
[2021-05-09] MEDS: CARBIDOPA-LEVODOPA 25-100 MG 1 EACH TAB PO SCH ×3 (08:01→20:56)
[2021-05-09] MEDS: FAMOTIDINE 20 MG TAB PO SCH ×2 (08:01→20:56)
[2021-05-09] MEDS: OFLOXACIN 0.3% OPHTH DROPS 5 ML BOTTLE RIGHT EAR SCH ×2 (08:01→21:08)
--- NOTE | 2021-05-09 09:07 | P.PN ---
Subjective Progress Note Date: 05/09/21 Pt s/e. Sitting up in bed. No acute distress. Does not follow commands or answer questions today. Otherwise seems comfortable. Objective - Vital Signs Vital signs: Vital Signs Temp 97.3 F L 05/09/21 07:32 Pulse 69 05/09/21 07:32 Resp 16 05/09/21 07:32 BP 151/99 05/09/21 07:32 Pulse Ox 94 L 05/09/21 07:32 Intake & Output 05/08/21 05/09/21 05/09/21 18:59 06:59 18:59 Output Total 200 350 Balance -200 -350 Output: Urine 200 350 Other: Voiding Method Indwelling Catheter Indwelling Catheter - Exam LImited exam. No cooperation. Mild TTP of the T/L spine elicited. Does not follow commands for motor testing. NEg babinski, clonus, hoffmans b/l. Pain intact distally. pulses intact distally. - Labs CBC & Chem 7: 05/08/21 11:55 05/08/21 11:55 Labs: Abnormal Lab Results - Last 24 Hours (Table) 05/08/21 05/08/21 05/08/21 Range/Units 11:55 11:55 16:55 Lymphocytes # 0.7 L (1.0-4.8) k/uL Chloride 111 H (98-107) mmol/L BUN 22 H (9-20) mg/dL Urine Protein 1+ H (Negative) Urine Blood Large H (Negative) Ur Leukocyte Esterase Large H (Negative) Urine RBC >182 H (0-5) /hpf Urine WBC >182 H (0-5) /hpf Urine WBC Clumps Many H (None) /hpf Urine Bacteria Rare H (None) /hpf Urine Mucus Many H (None) /hpf Microbiology - Last 24 Hours (Table) 05/07/21 23:22 Urine Culture - Preliminary Urine,Catheterized Assessment and Plan Assessment: 81-year-old male status post fall from standing with mental status changes and generalized weakness T5 likely acute compression fracture with T7 chronic compression fracture Osteoporosis Complex medical patient multiple medical comorbidities Plan: -Appreciate funeral pre need consultant and team management. -Activity: Ambulate QID, OOB all meals, up and about, limit lifting bending twisting to less than 5 lbs. Use walker or cane if needed for stability. -Daily PT/OT, increase ambulation strength and balance. -Obtaine TLSO brace for attempted ambulation and up and about -Pain control: Adequate at this time -Meds: reviewed -GI ppx: senna Miralax -DVT PPX: Per primary team -Hygiene: Maintain good hygiene, recommend log rolls every 2-3 hours -Encourage IS 10x/hr -No orthopedic surgical intervention warranted at this time -Dispo: per primary team
--- NOTE | 2021-05-09 13:35 | P.CRDCN ---
History of Present Illness History of present illness: This is a pleasant 80-year-old male past medical history significant for CVA, dementia, and pacemaker insertion (about 10 years ago per son), perstistent atrial fibrilation (not on anticoagulation due to multiple falls at home), parkinson's disease, dementia. Poor historian. 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 We have been asked to see in consultation for patient's pacemaker not capturing. Patient is seen and examined at bedside. He is a poor historian. Unable to explain why he is in the hospital. Patient presented to the emergency department 05/06/21, transferred here from [facility] where he had gone to be evaluated after a fall. CT of the brain, cervical thoracic and lumbar spine at outside facility and is noted that the patient has acute compression fracture over the T5 and acute right rib 6th to 7th fracture. Neurology was consulted for altered mental status. Surgery is following with no plan for surgical intervention at this time. He was recently in the hospital in March 2021, seen by cardiology for chest pain. His chest pain was atypical. Acute coronary syndrome was ruled out. EKG revealed underlying atrial fibrillation with A-V paced spikes, PVC present. Patient does not have any known history of coronary artery disease, DE, diabetes, hypertension. Echocardiogram revealed left ventricular systolic function is mildly impaired with an EF between 45-50%, LA is mildly dilated, moderate aortic valve sclerosis, mild aortic regurgitation, mild mitral regurgitation, mild tricuspid regurgitation. Interrogation of patient's pacemaker performed which reveals he has an A fib burden of 44%, no acute findings on interrogation. Patient was discharged to facility, unfortunately patient's insurance ran out and was sent back home. DIAGNOSTICS Telemetry tracings indicate underlying atrial fibrillation with A-V paced spikes present. HR 80s-90s EEG was performed, which revealed background slowing of mild to moderate degree, suggestive of encephalopathy. No epileptiform activity was seen Carotid duplex showed antegrade flow in the vertebral arteries. No significant stenosis in either ICA. Chest xray mildInfiltrate in the left lower lobe. CT brain revealed moderate generalized atrophy and patchy portal chronic small vessel ischemic disease. Small 7 mm meningioma superior right frontal, unchanged. No acute intracranial abnormality seen. Laboratory reviewed, WBC 6.3, hemoglobin 14.3, platelets 167, sodium 143, potassium 3.8, BUN 22, serum creatinine 0.7, COVID-19 piece, negative current home cardiac medications include Lasix 20 mg daily, aspirin 81 mg daily REVIEW OF SYSTEMS At the time of my exam unable to perform adequate review of systems due to patient's mental status. PHYSICAL EXAMINATION blood pressure 151/99, heart rate 96, afebrile, maintaining oxygen saturations on room air. CONSTITUTIONAL: No apparent distress. HEENT: Head is normocephalic. Pupils are round, equal, sluggish. Sclerae anicteric. Mucous membranes of the mouth are dry. No JVD. CHEST EXAMINATION: Lungs are clear to auscultation. No chest wall tenderness is noted on palpation HEART EXAMINATION: Irregular rate and rhythm. S1, S2 heard. Systolic mumur noted ABDOMEN: Soft, nontender. Positive bowel sounds. :Linares with cloudy, yellow urine. EXTREMITIES: 2+ peripheral pulses, no lower extremity edema and no calf tenderness. SKIN: generalized ecchymosis NEUROLOGIC EXAMINATION: Patient is drowsy, alert, oriented x 1. ASSESSMENT Recurrent falls at home Altered mental status Pacemaker insertion, unknown details Persistent atrial fibrillation CHADS2-VASC score 4. Not an anticoagulation due to frequent falls at home and risk of bleeding. Cardiomyopathy, LV systolic function mildly impaired, EF 45-50%, most likely non-ischemic - currently euvolemic. History of CVA/TIA Recent UTI Reported acute fracture over the T5 and ribs 6th-7th over outside facility report PLAN We will interrogate pacemaker Continue current medical therapy. Further recommendations pending clinical course Nurse Practitioner note has been reviewed, I agree with a documented findings and plan of care. Patient was seen and examined. Past Medical History Past Medical History: Atrial Fibrillation History of Any Multi-Drug Resistant Organisms: None Reported Past Surgical History: Unable to Obtain Past Anesthesia/Blood Transfusion Reactions: No Reported Reaction Past Psychological History: No Psychological Hx Reported Smoking Status: Never smoker Past Alcohol Use History: None Reported Past Drug Use History: None Reported Medications and Allergies Home Medications Medication Instructions Recorded Confirmed Type Aspirin 81 mg PO DAILY 04/05/21 05/06/21 History Bethanechol Chloride 25 mg PO BID 04/05/21 05/06/21 History Carbidopa-Levodopa 25-100 mg 1 tab PO TID 04/05/21 05/06/21 History [Sinemet 25-100 mg] Cholecalciferol [Vitamin D3 (25 50 mcg PO DAILY 04/05/21 05/06/21 History Mcg = 1000 Iu)] Furosemide [Lasix] 20 mg PO DAILY 04/05/21 05/06/21 History Magnesium Oxide [Magox 400] 400 mg PO DAILY 04/05/21 05/06/21 History Potassium Chloride ER [K-Dur 10] 20 meq PO DAILY 04/05/21 05/06/21 History Sennosides [Senna] 8.6 mg PO DAILY 04/05/21 05/06/21 History Tamsulosin HCl [Flomax] 0.4 mg PO DAILY 04/05/21 05/06/21 History Acetaminophen Tab [Tylenol] 500 mg PO Q6HR PRN tab 04/10/21 05/06/21 Rx Folic Acid 1 mg PO DAILY@1200 tab 04/10/21 05/06/21 Rx Thiamine [Vitamin B-1] 100 mg PO DAILY@1200 tab 04/10/21 05/06/21 Rx carvediloL [Coreg] 3.125 mg PO BID-W/MEALS tab 04/10/21 05/06/21 Rx Multivitamins, Thera [Multivitamin 1 tab PO DAILY@1200 05/06/21 05/06/21 History (formulary)] Omeprazole 20 mg PO DAILY 05/06/21 05/06/21 History Simvastatin [Zocor] 10 mg PO DAILY 05/06/21 05/06/21 History Allergies Allergy/AdvReac Type Severity Reaction Status Date / Time No Known Allergies Allergy Verified 05/06/21 23:13 Physical Exam Vitals: Vital Signs Temp Pulse Resp BP Pulse Ox 05/09/21 07:32 97.3 F L 69 16 151/99 94 L 05/09/21 00:17 98.4 F 84 15 153/95 97 05/08/21 19:16 97.5 F L 98 20 145/89 97 05/08/21 14:00 97.7 F 96 20 137/89 95 Intake and Output 05/08/21 05/09/21 05/09/21 22:59 06:59 14:59 Output Total 350 Balance -350 Output: Urine 350 Other: Voiding Method Indwelling Catheter Results 05/08/21 11:55 05/08/21 11:55 CBC 05/08/21 Range/Units 11:55 WBC 6.3 (3.8-10.6) k/uL RBC 4.51 (4.30-5.90) m/uL Hgb 14.3 (13.0-17.5) gm/dL Hct 41.9 (39.0-53.0) % Plt Count 167 (150-450) k/uL Comprehensive Metabolic Panel 05/08/21 Range/Units 11:55 Sodium 143 (137-145) mmol/L Potassium 3.8 (3.5-5.1) mmol/L Chloride 111 H (98-107) mmol/L Carbon Dioxide 25 (22-30) mmol/L BUN 22 H (9-20) mg/dL Creatinine 0.77 (0.66-1.25) mg/dL Glucose 96 (74-99) mg/dL Calcium 9.3 (8.4-10.2) mg/dL Current Medications Generic Name Dose Route Start Last Admin Trade Name Freq PRN Reason Stop Dose Admin Acetaminophen 650 mg 05/06/21 22:58 Acetaminophen Tab 325 Mg Tab PO Q6HR PRN Mild Pain or Fever > 100.5 Atorvastatin Calcium 10 mg 05/07/21 21:00 05/08/21 20:51 Atorvastatin 10 Mg Tab PO 10 mg HS TOVA Administration Carbidopa/Levodopa 1 each 05/07/21 11:30 05/09/21 08:01 Carbidopa-Levodopa 25-100 Mg 1 Each Tab PO 1 each TID TOVA Administration Famotidine 20 mg 05/07/21 09:00 05/09/21 08:01 Famotidine 20 Mg Tab PO 20 mg BID TOVA Administration Sodium Chloride 1,000 mls @ 20 mls/hr 05/06/21 23:00 05/09/21 06:58 Saline 0.9% IV Not Given .Q24H TOVA Ceftriaxone Sodium 1 gm/ 50 mls @ 100 mls/hr 05/07/21 19:15 05/09/21 08:01 Sodium Chloride IVPB 100 mls/hr Q24HR TOVA Administration Naloxone HCl 0.2 mg 05/06/21 22:58 Naloxone 0.4 Mg/Ml 1 Ml Vial IV Q2M PRN Opioid Reversal Ofloxacin 5 drops 05/08/21 21:00 05/09/21 08:01 Ofloxacin 0.3% Ophth Drops 5 Ml Bottle RIGHT EAR 5 drops BID TOVA Administration Ondansetron HCl 4 mg 05/06/21 22:58 Ondansetron 4 Mg/2 Ml Vial IVP Q8HR PRN Nausea And Vomiting Oxymetazoline HCl 6 spray 05/07/21 16:51 Oxymetazoline 0.05% Nasl [place] 1 [place] Bottle RIGHT EAR BID PRN bleeding Intake and Output 05/08/21 05/09/21 05/09/21 22:59 06:59 14:59 Output Total 350 Balance -350 Output: Urine 350 Other: Voiding Method Indwelling Catheter 05/08/21 11:55 05/08/21 11:55
--- NOTE | 2021-05-09 16:23 | P.PN ---
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 She was obtained from medical record He presented to outside hospital after a fall and hitting his head. Per outside record is seems that the patient was trying to get out of bed and fell and he's been feeling weak and tired for the last few days. He seems to be also more confused and weak throughout. She had CT of the brain, cervical thoracic and lumbar spine at outside facility and is noted that the patient has acute fracture over the T5 and acute right rib 6th to 7th fracture. He also has chronic fracture over the T7. It seems that the patient also was noted to have positive urinary tract infection and he has a Lucas catheter that was replaced there. He was given morphine at the outside facility as well as ceftriaxone for the acute urinary tract infection. Regarding the CT of the head there is no bleeding. Per the patient's nurse she stated that the patient because of his falls he had dry blood in the right ear and there is no clear fluid from any of the nose or the ears. Initial vital signs his blood pressure of 104/72, heart rate of 95, respiratory of 18, temperature of 98.1 Fahrenheit axillary and pulse ox of 95% room air. Has been afebrile in our facility Initial CBC with differential as the white blood cells 11.5 with which is slightly elevated. His platelet is 140 otherwise the rest of the CBC with differential is unremarkable. Chemistry panel seems unremarkable. Initial serum glucose is 91. The AST of 17 and ALT of 6. Martin virus PCR was not detected. CT of the head stat was done on 05/07/2021 since the patient altered mental status: Was reported as moderate generalized atrophy and patchy burden of chronic small vessel ischemic disease. 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 No acute intracranial abnormality seen. 05/08/2021 Patient is seen and evaluated in follow up this morning and underwent EEG which was negative for any seizure like activity. Neurology following and recommending outpatient follow up. Patient was also evaluated by ent and started on ear antibiotic drops and using Afrin as needed to the ear for any further bleeding which has subsided as of now. Will continue to monitor for any signs of bl eeding. Patient has chronic lucas which was recently replaced and started on IV ceftriaxone and awaiting repeat urinalysis with culture as patient has history of recurrent UTIs. WBC is within normal limits and patient is afebrile. Patient denies any shortness of breath or palpitations. Patient tolerated diet with continued poor oral intake and requires assistance with meals. PT/OT to evaluate for possible Ecf placement. 05/09/2021 Patient is seen this morning and follow-up continues to be confused. Cardiology has been consulted for possible pacemaker interrogation and will await report. Patient continues on IV ceftriaxone and will await cultures to finalize as preliminary is showing gram-negative bacilli. No repeat labs today and will repeat tomorrow. Physical exam: Gen: This is a 81 year old male, confused, with parkinsons tremor and dementia. HEENT: Head is atraumatic, normocephalic. Pupils equal, round. Sclerae is anicteric. NECK: Supple. No JVD. No lymphadenopathy. No thyromegaly. LUNGS: Clear to auscultation. No wheezes or rhonchi. No intercostal retractions. HEART: Regular rate and rhythm. No murmur. ABDOMEN: Soft. Bowel sounds are present. No masses. No tenderness. EXTREMITIES: No pedal edema. No calf tenderness. lower extremity dry skin noted bilaterally with poorly kept toenails NEUROLOGICAL: Patient is awake, alert and oriented x1. diffusely weak, confused. Assessment: -Altered mental status; possibly secondary to acute urinary tract infection with repeat urinalysis and culture pending. Patient continues on IV ceftriaxone. Pulmonary culture showing gram-negative bacilli and will await finalization -Acute metabolic encephalopathy, multifactorial most likely related to advance dementia, dehydration -Recurrent falls; possibly secondary to recurrent UTIs versus advancing Parkinson's disease; PT/OT evaluation ordered and pending -Acute fracture of T7; orthopedic surgery on board and no surgical intervention is recommended, tlso brace ordered -Recurrent UTIs/acute UTI; continued on IV ceftriaxone at previous hospital and repeat UA with culture pending, preliminary is gram-negative bacilli -Atrial fibrillation; patient has been off anticoagulation since July 2020 due to recurrent falls, cardiology consulted for possible pacemaker interr ogation -Bleeding right ear; ENT following and bleeding has stopped with afrin to the right ear and abx ear drops, CT mastoid was negative for mastoiditis or focal bone destruction with bilateral debris noted in the auditory canals and 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 Awaiting repeat urine with culture and maintained on Ceftriaxone. Preliminary culture showing gram-negative bacilli and will await finalized cultures to determine discharge antibiotics. PT/OT to evaluate the patient. Patient needs YOLANDA on discharge. Recommend to continue with Afrin as needed to the right ear for bleeding. CT mastoid ordered and showed no evidence of mastoiditis with no focal bone destruction bilateral debris in the external auditory canals almost complete occlusion of the right external auditory canal noted. ENT following recommending continue with Afrin and otic eardrops although patient has been refusing. Cardiology consulted and plans are for pacemaker interrogation. Neurology has evaluated the patient and EEG showed no seizure like activity. Case management and social work following with possible placement and need to discuss treatment plan and other discharge options with son of whom he lives with. Objective - Vital Signs Vital signs: Vital Signs Temp 97.3 F L 05/09/21 07:32 Pulse 69 05/09/21 07:32 Resp 16 05/09/21 07:32 BP 151/99 05/09/21 07:32 Pulse Ox 94 L 05/09/21 07:32 Intake & Output 05/08/21 05/09/21 05/09/21 18:59 06:59 18:59 Output Total 200 350 Balance -200 -350 Output: Urine 200 350 Other: Voiding Method Indwelling Catheter Indwelling Catheter - Labs CBC & Chem 7: 05/08/21 11:55 05/08/21 11:55 Labs: Abnormal Lab Results - Last 24 Hours (Table) 05/08/21 05/08/21 05/08/21 Range/Units 11:55 11:55 16:55 Lymphocytes # 0.7 L (1.0-4.8) k/uL Chloride 111 H (98-107) mmol/L BUN 22 H (9-20) mg/dL Urine Protein 1+ H (Negative) Urine Blood Large H (Negative) Ur Leukocyte Esterase Large H (Negative) Urine RBC >182 H (0-5) /hpf Urine WBC >182 H (0-5) /hpf Urine WBC Clumps Many H (None) /hpf Urine Bacteria Rare H (None) /hpf Urine Mucus Many H (None) /hpf Microbiology - Last 24 Hours (Table) 05/07/21 23:22 Urine Culture - Preliminary Urine,Catheterized
[2021-05-09] MEDS: ATORVASTATIN 10 MG TAB PO SCH (20:56)
--- NOTE | 2021-05-09 22:27 | P.PN ---
Subjective Progress Note Date: 05/09/21 05/09/2021: Patient was seen for a follow-up. Patient is asleep at this time. Per nursing report, he is essentially unchanged. He is mostly lethargic at times. No new concerns raised. 05/08/2021: Patient is a 81-year-old male, seen for a follow-up. Patient initially seen by Dr. Alden Garcia. Please refer to his note for details. Patient has history of Parkinson disease, dementia, came with recurrent falls. Patient suffered from compression fracture of the thoracic region as well as rib fracture. Neurology was consulted for altered mental status. Patient was found to have some bleeding from the right ear but it was dried blood. ENT is closely following. Patient's mentation was noted to be back to baseline. He does have dementia, Parkinson's disease and a pacemaker. He was living at [facility], but because of insurance issues, he was sent back to his home, living with his son. He was home for 10 days when he suffered from a fall and was brought to the hospital. Per nursing report, he is not alert. He does get agitated, slightly swings his arms and legs. Objective - Vital Signs Vital signs: Vital Signs Temp 97.6 F 05/09/21 13:23 Pulse 96 05/09/21 13:23 Resp 16 05/09/21 13:23 BP 151/99 05/09/21 13:23 Pulse Ox 96 05/09/21 13:23 Intake & Output 05/09/21 05/09/21 05/10/21 06:59 18:59 06:59 Intake Total 360 Output Total 350 250 Balance -350 110 Intake: Oral 360 Output: Urine 350 250 Other: Voiding Method Indwelling Catheter - Exam Deferred, as patient was asleep. - Labs CBC & Chem 7: 05/08/21 11:55 05/08/21 11:55 Labs: Microbiology - Last 24 Hours (Table) 05/07/21 23:22 Urine Culture - Preliminary Urine,Catheterized Gram Neg Bacilli Assessment and Plan Assessment: Acute on chronic recurrent falls. Seems due to underlying acute UTI and hx of Parkinson's disease Altered mental status due to recent UTI--currently is back to baseline (per the family) Recent right facial droop with dysarthria not sure if this is a chronic or acute. 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 Reported acute fracture over the T5 and ribs 6th-7th over outside facility report Chronic fracture over the T7 (per outside facility report). History of underlying Dementia (baseline oriented to self and place) Atrial fibrillation on anticoagulation since July 2020 because of the recurrent falls History of TIA Acute UTI. History of dysphagia History of pacemaker since 2011 History of traumatic brain injury 2019 History of coronary artery disease Hyperlipidemia Plan: * B12 505, TSH 3.050, folate > 24.0, hemoglobin A1c 4.7. All normal. * EEG was performed, which revealed background slowing of mild to moderate degree, suggestive of encephalopathy. No epileptiform activity was seen. No indication for antiepileptic medication. * Carotid duplex showed antegrade flow in the vertebral arteries. No significant stenosis in either ICA. * Recommend orthostatic vitals once the patient is stable. * Cannot get MRI of the brain because of the patient the pacemaker. ENT is following. Patient undergoing CT of the mastoid as per recommendation from ENT. * From a neurological perspective consider restarting aspirin 81 mg home dose but will lead defer that to the orthopedic surgery team and primary team what whether they feel it appropriate at this state or not. Started on Lipitor 10mg qhs (on simvastatin 10mg at home). * Telemetry monitoring showing atrial fibrillation and paced to 80-90/m. * Consulted PT, OT and ASSISTANT STORE DIRECTOR * Orthopedic surgery team following for compression fracture. * We'll defer the rest of the medical management to primary team. * We will follow sporadically, although patient is clear from neurology point.
[2021-05-10] MEDS: CARBIDOPA-LEVODOPA 25-100 MG 1 EACH TAB PO SCH (08:29)
[2021-05-10] MEDS: FAMOTIDINE 20 MG TAB PO SCH (08:29)
[2021-05-10] MEDS: OFLOXACIN 0.3% OPHTH DROPS 5 ML BOTTLE RIGHT EAR SCH (08:34)
--- NOTE | 2021-05-10 09:25 | P.PN ---
Subjective Progress Note Date: 05/10/21 Principal diagnosis: Acute T5 compression fracture Chronic T7 compression fracture Altered mental status Noted history of Parkinson's, dementia, closed head injury Other medical comorbidities Patient was evaluated today at bedside,he is sitting up. Patient is utilizing the TLSO brace at this time. His medical status remains unchanged, review of systems is unobtainable. Objective - Vital Signs Vital signs: Vital Signs Temp 97.6 F 05/10/21 08:00 Pulse 81 05/10/21 08:00 Resp 16 05/10/21 08:00 BP 123/85 05/10/21 08:00 Pulse Ox 95 05/10/21 08:00 Intake & Output 05/09/21 05/10/21 05/10/21 18:59 06:59 18:59 Intake Total 360 240 Output Total 250 300 Balance 110 -60 Intake: Intake, IV Titration 240 Amount Sodium Chloride 0.9% 1, 240 000 ml @ 20 mls/hr IV . Q24H [facility] Rx#:[id number] Oral 360 Output: Urine 250 300 Other: Voiding Method Indwelling Catheter Indwelling Catheter - Exam Exam was very limited due to patient's mental state Minimal tenderness was noted with palpation in the thoracic spine area, no obvious cervical or lumbar pain reproduced No obvious tenderness with palpation of the bilateral upper extremities or bilateral lower extremities Gentle passive range of motion of the bilateral upper and lower extremities reproduces no obvious pain symptoms Skin is warm to touch of the bilateral upper and lower extremities - Labs CBC & Chem 7: 05/08/21 11:55 05/08/21 11:55 Labs: Microbiology - Last 24 Hours (Table) 05/07/21 23:22 Urine Culture - Final Urine,Catheterized Klebsiella pneumoniae Assessment and Plan Assessment: Acute T5 compression fracture Chronic T7 compression fracture Altered mental status Noted history of Parkinson's disease, dementia, closed head injury Other medical comorbidities Plan: Continue use of TLSO brace If patient is ambulatory, recommending use a walker all the time Patient does require assistance with all ADLs, patient is a candidate for permanent usp placement GI and DVT prophylaxis per primary medical service We will be available for any further questions regarding this brace, would recommend follow-up with Dr. Blake in the next 2-3 weeks for x-ray evaluation Time with Patient: Less than 30
--- NOTE | 2021-05-10 11:32 | P.PN ---
Subjective This is a pleasant 80-year-old male past medical history significant for CVA, dementia, and pacemaker insertion in 2017, perstistent atrial fibrilation (not on anticoagulation due to multiple falls at home), parkinson's disease, dementia. Poor historian. He does not follow with a office nurse. We have been asked to see in consultation for patient's pacemaker not capturing. Patient is seen and examined at bedside. He is a poor historian. Unable to explain why he is in the hospital. Patient presented to the emergency department 05/06/21, transferred here from [facility] where he had gone to be evaluated after a fall. CT of the brain, cervical thoracic and lumbar spine at outside facility and is noted that the patient has acute compression fracture over the T5 and acute right rib 6th to 7th fracture. Neurology was consulted for altered mental status. Surgery is following with no plan for surgical intervention at this time. He was recently in the hospital in March 2021, seen by cardiology for chest pain. His chest pain was atypical. Acute coronary syndrome was ruled out. EKG revealed underlying atrial fibrillation with A-V paced spikes, PVC present. Patient does not have any known history of coronary artery disease, DC, diabetes, hypertension. Echocardiogram revealed left ventricular systolic function is mildly impaired with an EF between 45-50%, LA is mildly dilated, moderate aortic valve sclerosis, mild aortic regurgitation, mild mitral regurgitation, mild tricuspid regurgitation. Interrogation of patient's pacemaker performed which reveals he has an A fib burden of 44%, no acute findings on interrogation. Patient was discharged to facility, unfortunately patient's insurance ran out and was sent back home. 05/10/21: Patient seen and examined at bedside, no acute distress. Patient's device was interrogated- atrial fibrillation undersensing was noted and atrial sensitivity was adjusted. No acute events noted on interrogation. Telemetry tracings indicate underlying atrial fibrillation with A-V paced spikes present, controlled ventricular rates. Blood pressure 123/85, heart rate 81, afebrile, maintaining oxygen saturations on room air. Patient is currently maintained on atorvastatin 10 mg nightly. Patient with TLSO brace. CONSTITUTIONAL: No apparent distress. HEENT: Neck Supple. No JVD CHEST EXAMINATION: Lungs are clear to auscultation. No chest wall tenderness is noted on palpation HEART EXAMINATION: Irregular rate and rhythm. S1, S2 heard. Systolic mumur noted ABDOMEN: Soft, nontender. Positive bowel sounds. :[place] with cloudy, yellow urine. EXTREMITIES: 2+ peripheral pulses, no lower extremity edema and no calf tenderness. NEUROLOGIC EXAMINATION: Patient is drowsy, alert, oriented x 1. ASSESSMENT Recurrent falls at home Altered mental status Pacemaker insertion- in 2017. Dual chamber. Persistent atrial fibrillation CHADS2-VASC score 4. Not an anticoagulation due to frequent falls at home and risk of bleeding. Cardiomyopathy, LV systolic function mildly impaired, EF 45-50%, most likely non-ischemic - currently euvolemic. History of CVA/TIA Recent UTI Reported acute fracture over the T5 and ribs 6th-7th over outside facility report PLAN Interrogation of pacemaker completed. No acute events on pacemaker. Atrial fibrillation undersensing was noted and atrial sensitivity was adjusted. No acute events on telemetry. Patient is Not an anticoagulation due to frequent falls at home and risk of bleeding. We will follow the patient as needed. Please reach out with further questions or concerns. Nurse Practitioner note has been reviewed, I agree with a documented findings and plan of care. Patient was seen and examined. Objective - Vital Signs Vital signs: Vital Signs Temp 97.6 F 05/10/21 08:00 Pulse 81 05/10/21 08:00 Resp 16 05/10/21 08:00 BP 123/85 05/10/21 08:00 Pulse Ox 95 05/10/21 08:00 Intake & Output 05/09/21 05/10/21 05/10/21 18:59 06:59 18:59 Intake Total 360 240 Output Total 250 300 Balance 110 -60 Intake: Intake, IV Titration 240 Amount Sodium Chloride 0.9% 1, 240 000 ml @ 20 mls/hr IV . Q24H [facility] Rx#:[id number] Oral 360 Output: Urine 250 300 Other: Voiding Method Indwelling Catheter Indwelling Catheter - Labs CBC & Chem 7: 05/08/21 11:55 05/08/21 11:55 Labs: Microbiology - Last 24 Hours (Table) 05/07/21 23:22 Urine Culture - Final Urine,Catheterized Klebsiella pneumoniae
[2021-05-10] MEDS ORDERED: ERTAPENEM 1 GM in SODIUM CHLORIDE 0.9% 50 ML IVPB SCH (12:00)
--- NOTE | 2021-05-10 12:57 | P.DS ---
Providers Date of admission: 05/06/21 22:58 Expected date of discharge: 05/10/21 Attending physician: Mary Vanessa Consults: 05/07/21 08:45 Consult Physician Routine Consulting Provider: José Miguel Blake Consult Reason/Comments: vertebral fx Do you want consulting provider notified?: Already Contacted 05/07/21 09:41 Consult Physician Stat Consulting Provider: Alden Garcia Consult Reason/Comments: Fall with head trauma, pt bleeding from right ear. altered mental status Do you want consulting provider notified?: Yes 05/07/21 13:50 Consult Physician Routine Consulting Provider: Dandre Ghosh Consult Reason/Comments: pt has bleeding from right inner s/p fall with hitting his head 05/05. Do you want consulting provider notified?: Yes 05/09/21 02:08 Consult Physician Routine Consulting Provider: Julian Comer Consult Reason/Comments: Pacemaker not capturing properly Do you want consulting provider notified?: Yes, Notify in am 05/10/21 09:10 Consult Physician Stat Consulting Provider: Miriam Cruz Consult Reason/Comments: esbl urine klebsiella pneumonia/ going to ECF poss. today Do you want consulting provider notified?: Yes Primary care physician: Merrill Chavez Hospital Course: Final diagnosis -Altered mental status; possibly secondary to acute urinary tract infection with culture showing Klebsiella pneumonia with ESBL -Acute metabolic encephalopathy, multifactorial most likely related to advance dementia, dehydration -Recurrent falls; possibly secondary to recurrent UTIs versus advancing Parkinson's disease -Acute fracture of T7; orthopedic surgery on board and no surgical intervention is recommended, tlso brace while up and out of bed -Recurrent UTIs/acute UTI -Atrial fibrillation -Status post pacemaker interrogation -Bleeding right ear, mastoiditis ruled out -Hyperlipidemia -Parkinson's disease; advanced -DVT prophylaxis -full code Discharge disposition Patient is being discharged in a stable condition with guarded prognosis to [facility] for continued PT/OT therapy. Patient will follow-up with Dr. Chavez in the outpatient setting upon discharge. Patient is to continue on IV Invanz daily for 10 days and then may discontinue. Patient is receiving a midline prior to discharge. Total time taken is greater than 35 minutes. 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 She was obtained from medical record He presented to outside hospital after a fall and hitting his head. Per outside record is seems that the patient was trying to get out of bed and fell and he's been feeling weak and tired for the last few days. He seems to be also more confused and weak throughout. She had CT of the brain, cervical thoracic and lumbar spine at outside facility and is noted that the patient has acute fracture over the T5 and acute right rib 6th to 7th fracture. He also has chronic fracture over the T7. It seems that the patient also was noted to have positive urinary tract infection and he has a Lucas catheter that was replaced there. He was given morphine at the outside facility as well as ceftriaxone for the acute urinary tract infection. Regarding the CT of the head there is no bleeding. Per the patient's nurse she stated that the patient because of his falls he had dry blood in the right ear and there is no clear fluid from any of the nose or the ears. Initial vital signs his blood pressure of 104/72, heart rate of 95, respiratory of 18, temperature of 98.1 Fahrenheit axillary and pulse ox of 95% room air. Has been afebrile in our facility Initial CBC with differential as the white blood cells 11.5 with which is slightly elevated. His platelet is 140 otherwise the rest of the CBC with differential is unremarkable. Chemistry panel seems unremarkable. Initial serum glucose is 91. The AST of 17 and ALT of 6. Martin virus PCR was not detected. CT of the head stat was done on 05/07/2021 since the patient altered mental status: Was reported as moderate generalized atrophy and patchy burden of chronic small vessel ischemic disease. 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 No acute intracranial abnormality seen. 05/08/2021 Patient is seen and evaluated in follow up this morning and underwent EEG which was negative for any seizure like activity. Neurology following and recommending outpatient follow up. Patient was also evaluated by ent and started on ear antibiotic drops and using Afrin as needed to the ear for any further bleeding which has subsided as of now. Will continue to monitor for any signs of bleeding. Patient has chronic lucas which was recently replaced and started on IV ceftriaxone and awaiting repeat urinalysis with culture as patient has history of recurrent UTIs. WBC is within normal limits and patient is afebrile. Patient denies any shortness of breath or palpitations. Patient tolerated diet with continued poor oral intake and requires assistance with meals. PT/OT to evaluate for possible Ecf placement. 05/09/2021 Patient is seen this morning and follow-up continues to be confused. Cardiology has been consulted for possible pacemaker interrogation and will await report. Patient continues on IV ceftriaxone and will await cultures to finalize as preliminary is showing gram-negative bacilli. 05/10/2021 Patient is seen in follow-up this morning appears more awake and alert. Urine culture finalized showing Klebsiella pneumonia and was started on IV Invanz and is receiving a midline today and will continue with Invanz daily for the next 10 days and then may discontinue. Continue with indwelling Lucas catheter care. Recommend continuing dysphasia to ground diet with strict aspiration precautions with head of the bed elevated 30-45 with one-to-one supervision and nectar thick liquids and assistance with meals and continue using Magic cup supplements with meals. Currently no reports of chest pain, shortness of breath, or palpitations. Patient is afebrile. No reports of nausea or vomiting and patient is tolerating diet. Patient will be going to [facility] today. Gen: This is a 81 year old male, confused, with parkinsons tremor and dementia. HEENT: Head is atraumatic, normocephalic. Pupils equal, round. Sclerae is anicteric. NECK: Supple. No JVD. No lymphadenopathy. No thyromegaly. LUNGS: Clear to auscultation. No wheezes or rhonchi. No intercostal retractions. HEART: Regular rate and rhythm. No murmur. ABDOMEN: Soft. Bowel sounds are present. No masses. No tenderness. EXTREMITIES: No pedal edema. No calf tenderness. lower extremity dry skin noted bilaterally with poorly kept toenails NEUROLOGICAL: Patient is awake, alert and oriented x1. diffusely weak, confused. Please refer to medication reconciliation sheet for a list of medications. Patient Condition at Discharge: Stable Plan - Discharge Summary Discharge Rx Participant: No New Discharge Prescriptions: New Oxymetazoline 0.05% Nasl [place] [Afrin 0.05% Nasal [place]] 6 spray RIGHT EAR BID PRN ml PRN Reason: bleeding Ofloxacin 0.3% Ophth Soln [Ocuflox Ophth Soln] 5 drops RIGHT EAR BID 7 Days #7 ml Ertapenem [INVanz] 1 gm IVPB Q24H 10 Days #10 each Continue Sennosides [Senna] 8.6 mg PO DAILY Cholecalciferol [Vitamin D3 (25 Mcg = 1000 Iu)] 50 mcg PO DAILY Carbidopa-Levodopa 25-100 mg [Sinemet 25-100 mg] 1 tab PO TID Bethanechol Chloride 25 mg PO BID Omeprazole 20 mg PO DAILY Multivitamins, Thera [Multivitamin (formulary)] 1 tab PO DAILY@1200 Tamsulosin HCl [Flomax] 0.4 mg PO DAILY Magnesium Oxide [Magox 400] 400 mg PO DAILY Folic Acid 1 mg PO DAILY@1200 tab Acetaminophen Tab [Tylenol] 500 mg PO Q6HR PRN tab PRN Reason: Fever And/ Or Pain Thiamine [Vitamin B-1] 100 mg PO DAILY@1200 tab Simvastatin [Zocor] 10 mg PO DAILY Discontinued Furosemide [Lasix] 20 mg PO DAILY carvediloL [Coreg] 3.125 mg PO BID-W/MEALS tab Potassium Chloride ER [K-Dur 10] 20 meq PO DAILY Aspirin 81 mg PO DAILY Discharge Medication List Bethanechol Chloride 25 mg PO BID 04/05/21 [History] Carbidopa-Levodopa 25-100 mg [Sinemet 25-100 mg] 1 tab PO TID 04/05/21 [History] Cholecalciferol [Vitamin D3 (25 Mcg = 1000 Iu)] 50 mcg PO DAILY 04/05/21 [History] Magnesium Oxide [Magox 400] 400 mg PO DAILY 04/05/21 [History] Sennosides [Senna] 8.6 mg PO DAILY 04/05/21 [History] Tamsulosin HCl [Flomax] 0.4 mg PO DAILY 04/05/21 [History] Acetaminophen Tab [Tylenol] 500 mg PO Q6HR PRN tab 04/10/21 [Rx] Folic Acid 1 mg PO DAILY@1200 tab 04/10/21 [Rx] Thiamine [Vitamin B-1] 100 mg PO DAILY@1200 tab 04/10/21 [Rx] Multivitamins, Thera [Multivitamin (formulary)] 1 tab PO DAILY@1200 05/06/21 [History] Omeprazole 20 mg PO DAILY 05/06/21 [History] Simvastatin [Zocor] 10 mg PO DAILY 05/06/21 [History] Ertapenem [INVanz] 1 gm IVPB Q24H 10 Days #10 each 05/10/21 [Rx] Ofloxacin 0.3% Ophth Soln [Ocuflox Ophth Soln] 5 drops RIGHT EAR BID 7 Days #7 ml 05/10/21 [Rx] Oxymetazoline 0.05% Nasl [place] [Afrin 0.05% Nasal [place]] 6 spray RIGHT EAR BID P RN ml 05/10/21 [Rx] Follow up Appointment(s)/Referral(s): Gage Reyes MD [STAFF PHYSICIAN] - 2 Weeks Merrill Chavez MD [Primary Care Provider] - 1-2 days [facility] [NON-STAFF] - 1 Week José Miguel Blake DO [Doctor of Osteopathic Medicine] - 3 Weeks Activity/Diet/Wound Care/Special Instructions: Needs and line placement prior to discharge Patient is going to [place] Activity as tolerated Continue TLSO brace at all times while out of bed and walker Follow-up with ortho outpatient as needed Continue with dysphagia to ground diet with nectar thickened liquids and one-to-one supervision, no straws, aspiration precautions of head of the bed elevated 30-45 at all times Continue oral supplements of Magic cup 3 times daily with meals Continue with IV antibiotics for 10 days and then may discontinue Discharge Disposition: TRANSFER TO SNF/ECF
[2021-05-10 13:34] VITALS: BP 109/77; PULSE 114; RESP 18; TEMP 97.7
[2021-05-10] MEDS: SODIUM CHLORIDE 0.9% 1,000 ML IV SCH (14:21)
== END 2021-05-10 16:49 | DRG 689 ==
LOC: EC 22:06 → 4SSUR 22:58
PROVIDERS: ADMIT Hospitalist; ATTEND Hospitalist
PROC: 05HF33Z Insertion of Infusion Device into Left Cephalic Vein, Percutaneous Approach (ICD-10-PCS; principal; 2021-05-10 12:15)
DX: N39.0 Urinary tract infection, site not specified (principal); G93.41 Metabolic encephalopathy; M84.48XA Pathological fracture, other site, initial encounter for fracture; S22.39XA Fracture of one rib, unspecified side, initial encounter for closed fracture; I48.19 Other persistent atrial fibrillation; Z20.822 Contact with and (suspected) exposure to COVID-19; B96.1 Klebsiella pneumoniae [K. pneumoniae] as the cause of diseases classified elsewhere; F02.80 Dementia in other diseases classified elsewhere, unspecified severity, without behavioral disturbance, psychotic disturbance, mood disturbance, and anxiety; G20 Parkinson's disease; H92.21 Otorrhagia, right ear; I25.10 Atherosclerotic heart disease of native coronary artery without angina pectoris; I25.5 Ischemic cardiomyopathy; I49.3 Ventricular premature depolarization; D32.9 Benign neoplasm of meninges, unspecified; E78.5 Hyperlipidemia, unspecified; E86.0 Dehydration; Z95.0 Presence of cardiac pacemaker; Z87.820 Personal history of traumatic brain injury; Z87.440 Personal history of urinary (tract) infections; Z79.899 Other long term (current) drug therapy; Z79.82 Long term (current) use of aspirin; Z79.01 Long term (current) use of anticoagulants
CPT/HCPCS: 36410; 70450; 70486; 71045; 76937; 80048; 80053; 81001; 82607; 82746; 83036; 83605; 84443; 85025; 87077; 87086; 87186; 87635; 93880; 95816; 99285